=== PATIENT | female | born 1940 | race Caucasian/White ===

== ENCOUNTER 2016-08-01 15:12 | Emergency (ER) | payer OTHER ==
[~2016-08-01] VITALS: Ht 160 cm; Wt 87.4 kg
[~2016-08-01 15:12] MED LIST: ACCL20 PO; ACT15 PO; ALBU1AER9 INH; CALC600T9 PO; CPRDOTS OT; GLC/500 PO; GLC5 PO; LEVO50TA PO; LOSA1TAB38 PO; SIMV40TA2 PO; SYMIN160 INH
[2016-08-01 15:42] VITALS: TEMP 37.3; Ht 160 cm; Wt 87.4 kg
[2016-08-01 16:26] VITALS: BP 145/78; PULSE 87; O2SAT 95
--- NOTE | 2016-08-04 10:52 | EMERGENCY ROOM VISIT NOTE ---
ED Visit Note First contact with patient: 15:55 Chief Complaint: Right leg bleeding. History of Present Illness: Ms. Ordaz is a 75-year-old white female who ambulates into the ED accompanied by multiple family members complaining of right lower leg bleeding. Patient reports last night she was at a local sporting event at a high school and had a spontaneous onset of right anterior lower leg bleeding. She describes the bleeding as a spurting sensation. She reports it has been constant since it started last evening. She has not identified any aggravating or alleviating factors related to the bleeding. She has not taken any medications or any therapies to decrease the bleeding prior to arrival at the hospital. Associated with her bleeding she reports she has mild pain in this area but is unable to describe it. She rates it 1/10. Her pain is slightly reproducible on palpation to the area. She has not taken any medications for this discomfort prior to arrival at the hospital. She denies any associated lower extremity weakness/numbness/tingling, previous significant injuries or surgeries, previous episodes of spontaneous bleeding, anticoagulant therapy, shortness of breath, chest pain. Review of Systems: As noted above in history of present illness. Past Medical History: Chronic otitis media, hypertension, diabetes, hypothyroidism, dyslipidemia. Current Medications: Medications Dose Route/Sig Max Daily Dose Days Date Category Ciprodex Otic (Ciprofloxacin-Dexamethasone) 1 Grace Grace 4 Drops OT BID 02/03/16 Rx Calcium + D (Calcium Carbonate-Vitamin D) 1 Tab Tab 1 Tab PO QAM 01/25/16 Reported Cozaar (Losartan Potassium) 100 Mg Tab 100 Mg PO QAM 01/25/16 Reported Glucophage (Metformin Hcl) 500 Mg Tab 500 Mg PO BID 01/25/16 Reported Synthroid (Levothyroxine Sodium) 50 Mcg Tab 50 Mcg PO QAM 01/25/16 Reported Proair Hfa (Albuterol) Aers 2 Puffs INH QAM 02/09/10 Reported Symbicort 160/4.5 Inhaler (Budesonide/Formoterol Fumarate) Aero 2 Puffs INH QAM 02/09/10 Reported Zocor (Simvastatin) 40 Mg Tab 40 Mg PO QAM 02/20/09 Reported Actos * (Pioglitazone HCl) 45 Mg Tab 45 Mg PO QAM 02/20/09 Reported Accolate * (Zafirlukast) 20 Mg Tab 20 Mg PO BID 02/20/09 Reported Glucotrol * (Glipizide) 5 Mg Tab 10 Mg PO BID 02/20/09 Reported Allergies to Medications: Aspirin. Social History: Patient is not employed; she feels safe in her home environment ; patient denies tobacco use. Physical Examination: Vital Signs: Date Time Temp Pulse Resp B/P Pulse Ox O2 Delivery O2 Flow Rate FiO2 08/01/16 16:26 87 18 145/78 95 Room Air 08/01/16 15:42 37.3 89 20 93 Room Air GENERAL: 75-year-old female in no acute distress, nontoxic-appearing, afebrile and hemodynamically stable. NEUROLOGICAL: Awake, alert and oriented to person, place and time. Answering questions appropriately and following commands. Normal gait. Good hand eye coordination. No focal motor sensory deficits. SKIN: Warm, dry and pink. Right Lower Leg: A bandage was removed and there was an obvious small 1-2 mm puncture like wound appearing over a varicosity. There was no active bleeding. There is no local erythema or edema. RIGHT LOWER EXTREMITY: Soft tissue injury as noted above. Previously noted there was no active bleeding. She does have mild dependent edema. Distal sensation to light touch is intact. Capillary refill was brisk. I minimally manipulate the wound but was not able to restart bleeding. ED Course: Patient is assessed as noted above. Patient was educated about tonight's findings and instructed on her treatment plan; she verbalizes understanding and agreement with this plan. Clinical Impression: Bleeding from a varicosity. Right lower leg bleeding, resolved. Disposition: Patient discharged home in stable condition accompanied by multiple family members; prior to departure she was reassessed and subjectively reported she was pain-free. Plan: Comfort measures, wound care, signs of infection and instruction for bleeding given to the patient. Patient was encouraged that if bleeding continued for longer than 15 minutes after attempting to control bleeding she should return to the ED for any signs of infection she should return
[2016-10-12] MEDS ORDERED: OFLO0.3D4 OT (08:56)
== END 2016-08-01 16:28 | disposition home or self-care (01) ==
LOC: C.EDB 15:17 → C.EDD 16:28
DX: I83.891 Varicose veins of right lower extremity with other complications (principal); I10 Essential (primary) hypertension; E11.9 Type 2 diabetes mellitus without complications; E03.9 Hypothyroidism, unspecified; E78.5 Hyperlipidemia, unspecified; Z79.84 Long term (current) use of oral hypoglycemic drugs; Z79.899 Other long term (current) drug therapy

== ENCOUNTER → 2016-08-29 | Outpatient (CLI) | payer OTHER ==
[~2016-08-29] MED LIST changes: +OFLO0.3D4 OT
--- NOTE | 2016-08-29 15:31 | DIAGNOSTIC IMAGING REPORT ---
LEFT FOREARM 2 VIEWS ROUTINE, LEFT HUMERUS MIN 2 VIEWS ROUTINE CLINICAL HISTORY: Fall with left arm pain. COMPARISON STUDY: None. FINDINGS: There is an old, healed distal left radius fracture. The bones are osteopenic. Soft tissues are unremarkable. No elbow effusion. No acute fracture or dislocation within the left humerus, left radius, or left ulna. IMPRESSION: No acute fracture or dislocation within the left humerus or left forearm. Electronically signed by: Oli Renae M.D. 08/29/2016 3:30 PM Dictated Date/Time: 08/29/2016 3:26 PM
== END | disposition home or self-care (01) ==
LOC: C.RAD1850 15:09
PROVIDERS: ATTEND Allergy & Immunology Allergy
DX: M79.602 Pain in left arm (principal); W19.XXXA Unspecified fall, initial encounter

== ENCOUNTER → 2016-10-12 | Day surgery (SDC) | payer OTHER ==
[2016-10-11 14:59] VITALS: Ht 158.8 cm; Wt 85.5 kg
--- NOTE | 2016-10-11 22:58 | HISTORY & PHYSICAL EXAMINATION ---
DATE OF ADMISSION: 10/12/2016 DIAGNOSIS: Chronic otitis media. HISTORY OF PRESENT ILLNESS: This 75-year-old lady has had a long history of chronic otitis media with multiple sets of tubes. PAST MEDICAL HISTORY: Medical problems: Hypertension and asthma. PREVIOUS SURGERIES: Multiple tubes. ALLERGIES: ASPIRIN. FAMILY HISTORY: Negative. SOCIAL HISTORY: Negative. REVIEW OF SYSTEMS: Otherwise negative. PHYSICAL EXAMINATION: GENERAL: female, 5 feet 4 inches, 179 pounds. HEAD: Normocephalic. EYES: Normal. EARS: Tympanic membranes are dull, retracted and collapsed. THROAT: Oropharynx is normal. NECK: Supple. HEART: RRR. LUNGS: Clear. ABDOMEN: Soft. GENITOURINARY: Deferred. IMPRESSION: Chronic otitis media. PLAN: BMT.
[~2016-10-12] VITALS: Ht 158.8 cm; Wt 85.5 kg
[~2016-10-12] MED LIST changes: +ACT/45 PO; +ALBUT/IPRATROP 3MG/0.5MG NEB 3 ML VIAL INH ONE; +ALBUT/IPRATROP 3MG/0.5MG NEB 3 ML VIAL ONE; +ATROPINE SULFATE 0.1 MG/ML 5ML SYR IV PRN; -CPRDOTS OT; +DEXAMETHASONE SOD INJ 4 MG/ML VIAL ONE; +EpHEDrine SULFATE INJ 50 MG/ML AMP IV PRN; +FENTANYL CITRATE INJ 50 MCG/1 ML 2 ML VIAL IV PRN; +FENTANYL CITRATE INJ 50 MCG/1 ML 2 ML VIAL ONE; +GLIP10TA9 PO; +LACTATED RINGER'S 1000ML 1,000 ML IV SCH; +LIDOCAINE HCL 2% 2 ML VIAL (20MG/ML) ONE; +METF500T5 PO; +OFLOXACIN 0.3% OP SOLN 5 ML BTL ONE; +ONDANSETRON INJ 2 MG/ML 2 ML VIAL IV PRN; +ONDANSETRON INJ 2 MG/ML 2 ML VIAL ONE; +PROAIR HFA INH; +PROPOFOL IV EMULSION 10 MG/ML 20 ML VIAL IV ONE; +TETRACAINE HCL (OPHTH) 60 DROPS/4 ML BTL OP ONE; +ZAFI1TAB10 PO
--- NOTE | 2016-10-12 07:05 | History & Physical Bridge Note ---
H&P Re-Evaluation Bridge Note: I have examined the patient, reviewed the History & Physical and in the interval since the performance of the History & Physical I have noted the following changes of clinical significance: No changes noted
--- NOTE | 2016-10-12 08:57 | Discharge Instructions-SurgCtr ---
Discharge Instructions Date of Service Oct 12, 2016. Visit Reason for Visit: Chronic Otits Media Discharge Discharge Diagnosis / Problem: same Discharge Goals Goal(s): Improve function Activity Recommendations Activity Limitations: resume your previous activity Anesthesia . Post Anesthesia Instructions: If you have had General Anesthesia or IV Sedation: * Do not drive today. * Resume driving when surgeon permits. * Do not make important decisions or sign legal documents today. * Call surgeon for: 1. Temperature elevations greater than 101 degrees F. 2. Uncontrollable pain. 3. Excessive bleeding. 4. Persistent nausea and vomiting. 5. Medication intolerance (nausea, vomiting or rash). * For nausea and vomiting use only clear liquids such as: tea, soda, bouillon until nausea subsides, then gradually increase diet as tolerated. * If you have any concerns or questions, call your surgeon's office. If physician is unavailable and it is an emergency, call 911 or go to the nearest emergency room. . Instructions / Follow-Up Instructions / Follow-Up ACTIVITY RECOMMENDATIONS: * Take it easy today. * Return to regular activity tomorrow. OVER THE COUNTER MEDICATIONS: * You may use Tylenol for pain * Avoid aspirin or aspirin containing products, e.g. as they may increase bleeding. DIET: Resume previous diet RETURN TO SCHOOL/WORK: May return to normal activities tomorrow. SPECIAL CARE INSTRUCTIONS: * Drainage is not unusual during the first few days after placement of tubes. The drainage may be bloody. If it is foul smelling or very thick, please notify the doctor. Call or cell phone . * Keep water out of the ears when shampooing or bathing. Use cotton balls covered with Vaseline or "Macks" ear plugs. * Call physician if increased pain, fever over 101 degrees F. or any problems. FOLLOW UP VISIT: Follow-up Visit with Dr. Leonard in 2 weeks. Please call to schedule. Diet Recommendations Home Diet: no limitations Procedures Procedures Performed: Bilateral Myringotomy With Tubes Pending Studies Studies pending at discharge: no Medical Emergencies . Who to Call and When: Medical Emergencies: If at any time you feel your situation is an emergency, please call 911 immediately. . Non-Emergent Contact Non-Emergency issues call your: Primary Care Provider . . "Provider Documentation" section prepared by Vandana CHAVEZ Drug Monitoring Program Search Results: no issues identified
[2016-10-12 09:52] VITALS: BP 150/83; O2SAT 96
--- NOTE | 2016-10-12 10:05 | Anesthesia Progress Nt - [facility] ---
Anesthesia Post Op Note Date & Time Oct 12, 2016 at 09:55 Vital Signs Pain Intensity: 0 Vital Signs Past 12 Hours Date Time Temp Pulse Resp B/P Pulse Ox O2 Delivery O2 Flow Rate FiO2 10/12/16 09:52 84 20 150/83 96 Room Air 10/12/16 09:24 36.4 75 20 143/71 97 Room Air 10/12/16 09:18 81 23 97 10/12/16 09:18 79 23 10/12/16 09:18 37.0 83 18 152/81 98 Room Air 10/12/16 09:15 155/68 10/12/16 09:14 155/62 10/12/16 09:13 81 15 10/12/16 09:13 82 15 98 10/12/16 09:11 155/62 10/12/16 09:08 79 18 99 10/12/16 09:08 79 18 10/12/16 09:06 173/67 10/12/16 09:03 79 10 100 10/12/16 09:03 79 10 10/12/16 09:00 146/94 10/12/16 08:58 73 13 10/12/16 08:58 73 13 100 10/12/16 08:55 147/62 10/12/16 08:53 71 19 10/12/16 08:53 72 19 100 10/12/16 08:50 156/67 10/12/16 08:49 151/70 10/12/16 08:48 36.6 81 20 151/70 99 Mask 6 10/12/16 07:08 36.7 80 20 155/71 96 Room Air Notes Mental Status: alert / awake / arousable, participated in evaluation Pt Amnestic to Procedure: Yes Nausea / Vomiting: adequately controlled Pain: adequately controlled Airway Patency, RR, SpO2: stable & adequate BP & HR: stable & adequate Hydration State: stable & adequate Anesthetic Complications: no major complications apparent The patient is a 75 y/o female with a h/o Asthma, possible URI, DM and hypothyroidism s/p B myringotomy tube placement with Dr. Leonard. Preoperatively, the patient had a slight expiratory wheeze on exam. Her oxygen saturation was 97% RA. She stated that she has been having some nasal congestion recently which is probably why she is wheezing. She did take her inhalers this morning. She took 2 puffs of Albuterol preoperatively as well. Intraoperatively, an LMA was placed. She did have some wheezing after LMA placement for which she was given Albuterol and Decadron 4mg IV which improved her wheezing. On arrival to the recovery room, she was noted to have inspiratory and expiratory wheezing. Her oxygen saturations were 100% on FM. She was given a Duoneb which significantly improved her wheezing with only a very slight occasional expiratory wheeze remaining. On discharge her oxygen saturation was 97% on RA and she was feeling well with no complaints. She was instructed to go the ED with any chest pain, shortness of breath, chest tightness, significant wheezing, lightheaded or dizziness or with any other complaints. She understands and agrees.
--- NOTE | 2016-10-12 11:12 | OPERATIVE REPORT ---
DATE OF OPERATION: 10/12/2016 PREOPERATIVE DIAGNOSIS: Chronic otitis media. POSTOPERATIVE DIAGNOSIS: Same. PROCEDURE: BMT. SURGEON: Dr. Leonard. ANESTHESIA: General with LMA. COMPLICATIONS: None. BLOOD LOSS: 5 mL HISTORY: This 75-year-old lady has had a long history of recurrent chronic otitis media. She now again has collapsed tympanic membranes with fluid and mixed hearing loss. DESCRIPTION OF PROCEDURE: The patient was brought to the Operating Room and placed supine position. General anesthesia was induced. Right ear was visualized and irrigated with peroxide, cleaned of cerumen. A myringotomy incision was made anterior inferiorly. Thick fluid was evacuated from middle ear space and a T-tube was inserted. Cortisporin drops were placed. Left tympanostomy performed similar manner. The patient tolerated the procedure well and was taken to the recovery area in satisfactory condition. I attest to the content of the Intraoperative Record and any orders documented therein. Any exceptio ns are noted below.
== END | disposition home or self-care (01) ==
LOC: X.SURG 06:35
PROVIDERS: ATTEND Otolaryngology
DX: H66.93 Otitis media, unspecified, bilateral (principal); I10 Essential (primary) hypertension; J45.909 Unspecified asthma, uncomplicated; Z79.899 Other long term (current) drug therapy

== ENCOUNTER → 2016-10-20 | Outpatient (CLI) | payer OTHER ==
[~2016-10-20] MED LIST changes: -ALBUT/IPRATROP 3MG/0.5MG NEB 3 ML VIAL INH ONE; -ALBUT/IPRATROP 3MG/0.5MG NEB 3 ML VIAL ONE; -ATROPINE SULFATE 0.1 MG/ML 5ML SYR IV PRN; -DEXAMETHASONE SOD INJ 4 MG/ML VIAL ONE; -EpHEDrine SULFATE INJ 50 MG/ML AMP IV PRN; -FENTANYL CITRATE INJ 50 MCG/1 ML 2 ML VIAL IV PRN; -FENTANYL CITRATE INJ 50 MCG/1 ML 2 ML VIAL ONE; -LACTATED RINGER'S 1000ML 1,000 ML IV SCH; -LIDOCAINE HCL 2% 2 ML VIAL (20MG/ML) ONE; -OFLOXACIN 0.3% OP SOLN 5 ML BTL ONE; -ONDANSETRON INJ 2 MG/ML 2 ML VIAL IV PRN; -ONDANSETRON INJ 2 MG/ML 2 ML VIAL ONE; -PROPOFOL IV EMULSION 10 MG/ML 20 ML VIAL IV ONE; -TETRACAINE HCL (OPHTH) 60 DROPS/4 ML BTL OP ONE
--- NOTE | 2016-10-20 11:31 | DIAGNOSTIC IMAGING REPORT ---
RIGHT HAND 3 VIEWS HISTORY: Right hand pain. COMPARISON: None. FINDINGS: The bones are osteopenic. No acute fracture or dislocation. Severe osteoarthritis at the DIP joint of the right index finger. There is also moderate osteoarthritis within the remaining DIP joints, PIP and, first MCP joint, and within the wrist. Soft tissues are unremarkable. No radiopaque foreign bodies. IMPRESSION: No fractures. Moderate to severe osteoarthritis. Osteopenia. Electronically signed by: Oli Renae M.D. 10/20/2016 11:30 AM Dictated Date/Time: 10/20/2016 11:28 AM
== END | disposition home or self-care (01) ==
LOC: C.RAD1850 11:16
PROVIDERS: ATTEND Physician Assistant Medical
DX: M79.643 Pain in unspecified hand (principal); M19.041 Primary osteoarthritis, right hand; M85.841 Other specified disorders of bone density and structure, right hand

== ENCOUNTER → 2016-11-07 | Outpatient (CLI) | payer OTHER ==
--- NOTE | 2016-11-07 16:18 | MAMMOGRAPHY REPORT ---
BILATERAL DIGITAL SCREENING MAMMOGRAM WITH CAD: 11/07/2016 CLINICAL HISTORY: Routine screening. Patient has no complaints. TECHNIQUE: Bilateral CC and MLO views were obtained. Current study was also evaluated with a Compu ter Aided Detection (CAD) system. COMPARISON: Comparison is made to exams dated: 11/02/2015 mammogram, 10/27/2014 mammogram, 09/09/2013 m ammogram, 08/27/2012 mammogram, 08/24/2011 mammogram, and 08/22/2010 mammogram - [facility]. BREAST COMPOSITION: There are scattered areas of fibroglandular density in both breasts. FINDINGS: No suspicious mass, architectural distortion or cluster of microcalcifications is seen. IMPRESSION: ACR BI-RADS CATEGORY 1: NEGATIVE There is no mammographic evidence of malignancy. A 1 year screening mammogram is recommended. The p atient will receive written notification of the results. Approximately 10% of breast cancers are not detected with mammography. A negative mammographic repor t should not delay biopsy if a clinically suggestive mass is present. Brittney Tavarez M.D. ay/:11/07/2016 16:12:59 Boat Mechanic: Priscilla Crow [facility] letter sent: Normal 1/2 BI-RADS Code: ACR BI-RADS Category 1: Negative
== END | disposition home or self-care (01) ==
LOC: C.MAMM 10:58
PROVIDERS: ATTEND Internal Medicine Pulmonary Disease
DX: Z12.31 Encounter for screening mammogram for malignant neoplasm of breast (principal)

== ENCOUNTER → 2016-11-07 | Outpatient (CLI) | payer OTHER ==
[2016-11-07 12:28] LABS: BASO % 0.6 %; BASO ABS # 0.04 K/uL (0-0.2); COMPLETE YES; EOS % 3.8 %; HEMATOCRIT 37.6 % (37-47); IG% 0.4 %; LYMPH % 22.9 %; LYMPH ABS # 1.57 K/uL (1.2-3.4); MEAN CELL VOLUME 91.5 fL (80-100); MEAN CORPUSCULAR HEMOGLOBIN 29.4 pg (25-34); MEAN CORPUSCULAR HGB CONC 32.2 g/dl (32-36); MEAN PLATELET VOLUME 10.1 fL (7.4-10.4); MONO % 8.5 %; NEUT % 63.8 %; PLATELET COUNT 261 K/uL (130-400); RED BLOOD COUNT 4.11 M/uL (4.2-5.4); WHITE BLOOD COUNT 6.86 K/uL (4.8-10.8)
[2016-11-07 12:54] LABS: ESTIMATED AVERAGE GLUCOSE 137 mg/dl; HA1C FLAG Normal (Normal)
[2016-11-07 13:08] LABS: ALT/SGPT 17 U/L (12-78); AST/SGOT 12 U/L (15-37); BLOOD UREA NITROGEN 12 mg/dl (7-18); BUN/CREATININE RATIO 18.2 (10-20); CALCIUM 8.6 mg/dl (8.5-10.1); CARBON DIOXIDE 31 mmol/L (21-32); CHLORIDE 107 mmol/L (98-107); CREATININE 0.66 mg/dl (0.60-1.20); GLUCOSE 60 mg/dl (70-99); POTASSIUM 3.9 mmol/L (3.5-5.1); SODIUM 143 mmol/L (136-145)
[2016-11-07 13:19] LABS: ALB/GLOB RATIO 1.1 (0.9-2); ALKALINE PHOSPHATASE 86 U/L (45-117); CHOLESTEROL 162 mg/dl (0-200); CHOLESTEROL/HDL RATIO 2.5; HDL CHOLESTEROL 66 mg/dl; LDL CHOLESTEROL CALCULATED 79 mg/dl; TRIGLYCERIDES 87 mg/dl (0-150); VERY LOW DENSITY LIPOPROT CALC 17 mg/dl
== END | disposition home or self-care (01) ==
LOC: C.LAB1850 10:38
PROVIDERS: ATTEND Internal Medicine Pulmonary Disease
DX: J45.909 Unspecified asthma, uncomplicated (principal); J30.89 Other allergic rhinitis; E11.9 Type 2 diabetes mellitus without complications; E78.5 Hyperlipidemia, unspecified; E03.9 Hypothyroidism, unspecified; I10 Essential (primary) hypertension; Z12.31 Encounter for screening mammogram for malignant neoplasm of breast

== ENCOUNTER 2017-01-22 18:41 | Emergency (ER) | payer OTHER ==
[~2017-01-22 18:41] MED LIST changes: -ACT/45 PO; -GLIP10TA9 PO; -METF500T5 PO; -PROAIR HFA INH; -ZAFI1TAB10 PO
[2017-01-22 18:45] VITALS: TEMP 36.9
--- NOTE | 2017-01-22 19:21 | EMERGENCY ROOM VISIT NOTE ---
ED Visit Note First contact with patient: 19:09 CHIEF COMPLAINT: Wrist injury HISTORY OF PRESENT ILLNESS: This 76-year-old female patient presents to the emergency department ambulatory complaining of pain in the right wrist after being hit with a volleyball yesterday. The patient was playing volleyball for [employer] when somebody hit the ball and it hit her right wrist. She did not fall to the ground. The patient is able to move their wrist. The patient states the pain is sharp and 8/10. No laceration, no weakness. No numbness or tingling. The patient denies any other injury. The patient is able to move their fingers and elbow without difficulty. The patient has not had any previous injuries to this wrist. The patient has taken nothing for the pain. REVIEW OF SYSTEMS: A 6 system review of systems was performed with positives and pertinent negatives in the HPI. ALLERGIES: Aspirin MEDICATIONS: See nursing notes PMH: Hypertension, hyperlipidemia SOCIAL HISTORY: The patient lives locally. She does not smoke PHYSICAL EXAM: Vital Signs: Reviewed Nurse's notes, vital signs stable. GENERAL : This is a 76-year-old female, in no acute distress, but appears to be in pain , well-developed, well-nourished. NEURO: Alert and oriented to person place and time. Normal sensation to light and sharp touch. MUSCULOSKELETAL: There is no deformity of the right wrist. There is no erythema and a small area of hematoma/ ecchymosis. There is minimal edema. Tenderness over distal wrist. There is no snuff box tenderness. There is tenderness with any movement. Range of motion is decreased secondary to pain. There is no tenderness of the elbow, hand or fingers. Candy Depositing Machine Operator strength 5/5. Radial pulse 2+. SKIN: Normal and intact. The hand is warm and well perfused with capillary refill less than 2 seconds. EMERGENCY DEPARTMENT COURSE: I examined the patient. An X-ray of the right wrist and forearm was reviewed by myself and radiology and showed osteopenia but no obvious fracture. An Robert wrap was placed under my direction and the position was satisfactory. Neurovascular status rechecked and intact. The patient was discharged home in good condition. Blood pressure screening: The patient was found to have an elevated blood pressure and was referred to their primary care doctor for recheck and further treatment I attest that I have personally reviewed the patient's current medication list. The patient was also seen and examined by who agrees with the assessment and treatment plan. Current/Historical Medications Scheduled Budesonide/Formoterol Fumarate (Symbicort 160/4.5 Inhaler ), 2 PUFFS INH BID Calcium Carbonate-Vitamin D (Calcium + D), 1 TAB PO QAM Glipizide (Glucotrol *), 2 TABS PO BID Levothyroxine Sodium (Synthroid), 50 MCG PO QAM Losartan Potassium (Cozaar), 100 MG PO QAM Metformin Hcl (Glucophage), 500 MG PO BID Pioglitazone (Actos *), 45 MG PO QAM Simvastatin (Zocor), 40 MG PO QAM Zafirlukast (Accolate *), 20 MG PO BID Scheduled PRN Albuterol (Proair Hfa), 2 PUFFS INH Q4H PRN for SOB/Wheezing Allergies Coded Allergies: Aspirin (Verified Adverse Reaction, Unknown, N/V, 10/12/16) Vital Signs Date Time Temp Pulse Resp B/P (MAP) Pulse Ox O2 Delivery O2 Flow Rate FiO2 01/22/17 20:40 72 18 173/88 98 01/22/17 18:45 36.9 75 16 165/76 97 Room Air Departure Information Impression Primary Impression: Arm contusion Additional Impression: Hematoma of arm Dispostion Home / Self-Care Condition GOOD Referrals Hill Alvares M.D. (PCP) Harjeet Teran M.D. Patient Instructions ED Hematoma, My [facility] Additional Instructions Ice frequently over the next 24-48 hours Wear the Robert wrap when up and about Follow-up with orthopedics if the symptoms are not improving in 5-7 days Return if worsening symptoms Problem Qualifiers Primary Impression: Arm contusion Encounter type: initial encounter Laterality: right Qualified Codes: S40.021A - Contusion of right upper arm, initial encounter Additional Impression: Hematoma of arm Encounter type: initial encounter Laterality: right Qualified Codes: S40.021A - Contusion of right upper arm, initial encounter
--- NOTE | 2017-01-22 20:20 | DIAGNOSTIC IMAGING REPORT ---
RIGHT WRIST 5 VIEWS; RIGHT FOREARM 2 VIEWS CLINICAL HISTORY: Right arm injury. FINDINGS: 5 views of the right wrist with AP and lateral views of the right forearm are obtained. No prior studies are available for comparison at the time of dictation. The skeletal structures are osteopenic. There is no radiographic evidence of fracture involving the right wrist or forearm. Degenerative narrowing is seen at the radiocarpal articulation. Mild arthritic change is present involving the intercarpal and carpometacarpal joints. The elbow joint is grossly maintained. A large enthesophyte is seen at the triceps insertion. Mild Soft tissue swelling is present around the distal forearm and wrist. IMPRESSION: 1. Soft tissue swelling is seen around the distal 4 and wrist. No fracture is identified involving the wrist or forearm. 2. Osteopenia and arthritic change as above. Electronically signed by: Case Blair M.D. 01/22/2017 8:18 PM Dictated Date/Time: 01/22/2017 8:15 PM
--- NOTE | 2017-01-22 20:33 | EMERGENCY ROOM VISIT NOTE ---
ED Visit Note First contact with patient: 19:09 I have personally evaluated and examined this patient. I agree with assessment and plan of Angeline Latif PA-C.
[2017-01-22 20:40] VITALS: BP 173/88; PULSE 72; O2SAT 98
== END 2017-01-22 20:41 | disposition home or self-care (01) ==
LOC: C.EDB 18:43 → C.EDD 20:41
DX: S40.021A Contusion of right upper arm, initial encounter (principal); W21.06XA Struck by volleyball, initial encounter; Y92.89 Other specified places as the place of occurrence of the external cause; Y93.68 Activity, volleyball (beach) (court); I10 Essential (primary) hypertension; E78.5 Hyperlipidemia, unspecified; Z79.899 Other long term (current) drug therapy

== ENCOUNTER 2017-04-20 14:00 | Emergency (ER) | payer OTHER ==
[~2017-04-20] VITALS: Ht 152.4 cm; Wt 65.5 kg
[~2017-04-20 14:00] MED LIST changes: -OFLO0.3D4 OT; -SIMV40TA2 PO
[2017-04-20 14:14] VITALS: TEMP 36.5; Ht 152.4 cm; Wt 65.5 kg
--- NOTE | 2017-04-20 14:33 | DIAGNOSTIC IMAGING REPORT ---
CHEST ONE VIEW PORTABLE HISTORY: Generalized abdominal pain COMPARISON: Chest 02/20/2009. FINDINGS: Mild chronic interstitial thickening, unchanged. No new focal lung consolidations to suggest pneumonia. The heart remains mildly enlarged. No pleural effusions. No pneumothorax. No evidence for pulmonary edema. IMPRESSION: No significant change compared to the prior study. No acute process. Electronically signed by: Oli Renae M.D. 04/20/2017 2:32 PM Dictated Date/Time: 04/20/2017 2:31 PM
[2017-04-20 14:35] VITALS: O2SAT 98
[2017-04-20 14:55] LABS: BASO % 0.2 %; BASO ABS # 0.02 K/uL (0-0.2); COMPLETE YES; EOS % 0.7 %; HEMATOCRIT 36.2 % (37-47); IG% 0.2 %; LYMPH % 10.6 %; LYMPH ABS # 0.95 K/uL (1.2-3.4); MEAN CORPUSCULAR HEMOGLOBIN 29.1 pg (25-34); MEAN CORPUSCULAR HGB CONC 32.3 g/dl (32-36); MEAN PLATELET VOLUME 9.7 fL (7.4-10.4); MONO % 4.9 %; NEUT % 83.4 %; PLATELET COUNT 191 K/uL (130-400); RED BLOOD COUNT 4.02 M/uL (4.2-5.4); WHITE BLOOD COUNT 8.98 K/uL (4.8-10.8)
[2017-04-20 15:02] LABS: URINE APPEARANCE CLOUDY (CLEAR); URINE BILIRUBIN NEG (NEG); URINE COLOR YELLOW; URINE EPITHELIAL CELL AUTO >30 /lpf (0-5); URINE NITRITE NEG (NEG); URINE SPECIFIC GRAVITY 1.027 (1.000-1.030); UROBILINOGEN NEG (NEG)
[2017-04-20 15:03] LABS: MANUAL MICROSCOPIC REQUIRED? NO; REVIEW REQ? YES
[2017-04-20 15:04] LABS: PARTIAL THROMBOPLASTIN RATIO 1.1; PROTHROMBIN TIME (PATIENT) 10.7 SECONDS (9.0-12.0)
[2017-04-20] MEDS ORDERED: GLIP10TA9 PO (15:14)
[2017-04-20] MEDS ORDERED: METF500T5 PO (15:14)
[2017-04-20] MEDS ORDERED: ACT/45 PO (15:14)
[2017-04-20] MEDS ORDERED: ZAFI1TAB10 PO (15:14)
[2017-04-20] MEDS ORDERED: PROAIR HFA INH (15:14)
[2017-04-20 15:17] LABS: ALT/SGPT 17 U/L (12-78); AST/SGOT 16 U/L (15-37); BLOOD UREA NITROGEN 17 mg/dl (7-18); BUN/CREATININE RATIO 21.5 (10-20); CALCIUM 8.2 mg/dl (8.5-10.1); CARBON DIOXIDE 25 mmol/L (21-32); CHLORIDE 103 mmol/L (98-107); CREATININE 0.79 mg/dl (0.60-1.20); GLUCOSE 152 mg/dl (70-99); POTASSIUM 3.9 mmol/L (3.5-5.1); SODIUM 138 mmol/L (136-145)
[2017-04-20 15:22] LABS: ALKALINE PHOSPHATASE 65 U/L (45-117); CKMB/CK RATIO 1.2 (0-3.0)
--- NOTE | 2017-04-20 16:43 | EMERGENCY ROOM VISIT NOTE ---
History Report prepared by Antonio: Tommie Deshpande Under the Supervision of: Dr. Kp Puentes D.O. First contact with patient: 14:09 Stated Complaint: HYPOGLYCEMIA History of Present Illness The patient is a 76 year old female who presents to the Emergency Room by EMS with complaints of improving hypoglycemia beginning shortly prior to arrival. She has a history of Type II Diabetes. She is on multiple medications for diabetes, but is not on insulin. Per family, the patient appeared very fatigued and slightly confused today prompting them to check her blood sugar. They state that her symptoms improved. The patient denies urinary symptoms, diarrhea, or vomiting. She denies recent illness. She denies recent medication changes. Source of History: patient, family Onset: Shortly prior to arrival Quality: other (hypoglycemia) Timing: other (improving) Associated Symptoms: + fatigue, No vomiting, No diarrhea, No urinary symptoms Review of Systems See HPI for pertinent positives & negatives. A total of 10 systems reviewed and were otherwise negative. Past Medical & Surgical Medical Problems: (1) Arm contusion (2) Diabetes (3) Hematoma of arm Family History No pertinent family history stated. Social History Smoking Status: Never Smoker Housing Status: lives with family Occupation Status: retired Current/Historical Medications Scheduled Budesonide/Formoterol Fumarate (Symbicort 160/4.5 Inhaler ), 2 PUFFS INH BID Calcium Carbonate-Vitamin D (Calcium + D), 1 TAB PO QAM Glipizide (Glucotrol), 10 MG PO BID Levothyroxine Sodium (Synthroid), 50 MCG PO QAM Losartan Potassium (Cozaar), 100 MG PO QAM Metformin Hcl Er (Glucophage Er), 1,000 MG PO DAILY Pioglitazone Hcl (Actos), 45 MG PO DAILY Simvastatin (Zocor), 40 MG PO QAM Zafirlukast (Accolate), 20 MG PO BID Scheduled PRN [Proair Hfa], 2 PUFF INH Q4 PRN for SOB/Wheezing Allergies Coded Allergies: Aspirin (Verified Adverse Reaction, Unknown, N/V, 10/12/16) Physical Exam Vital Signs Date Time Temp Pulse Resp B/P (MAP) Pulse Ox O2 Delivery O2 Flow Rate FiO2 04/20/17 16:00 86 16 162/70 98 Room Air 04/20/17 15:00 84 20 162/82 97 Room Air 04/20/17 14:36 85 04/20/17 14:35 88 16 166/74 99 Room Air 04/20/17 14:35 98 Room Air 04/20/17 14:14 36.5 89 18 169/70 97 Room Air Physical Exam GENERAL: Patient is awake, alert, and in no acute distress. Patient is resting comfortably and showing no signs of anxiety EYES: The conjunctivae are clear. The pupils are round and reactive. EARS, NOSE, MOUTH AND THROAT: The nose is without any evidence of any deformity. Mucous membranes are moist tongue is midline NECK: The neck is nontender and supple. RESPIRATORY: Normal respiratory effort is noted there is no evidence of wheezing rhonchi or rales CARDIOVASCULAR: Regular rate and rhythm noted there no murmurs rubs or gallops normal S1 normal S2 GASTROINTESTINAL: The abdomen is soft. Bowel sounds are present in all quadrants. Abdomen is nontender MUSCULOSKELETAL/EXTREMITIES: There is no evidence of gross deformity full range of motion is noted in the hips and shoulders SKIN: There is no obvious evidence of any rash. There are no petechiae, pallor or cyanosis noted. NEUROLOGIC: Patient is awake alert and oriented x3 strength is symmetric patellar reflexes are 2+ bilaterally Medical Decision & Procedures ER Provider Diagnostic Interpretation: X-ray results as stated below per interpretation by me and the radiologist. CHEST ONE VIEW PORTABLE FINDINGS: Mild chronic interstitial thickening, unchanged. No new focal lung consolidations to suggest pneumonia. The heart remains mildly enlarged. No pleural effusions. No pneumothorax. No evidence for pulmonary edema. IMPRESSION: No significant change compared to the prior study. No acute process. Electronically signed by: Oli Renae M.D. 04/20/2017 2:32 PM Laboratory Results 04/20/17 14:50 Red Blood Count 4.02, Mean Corpuscular Volume 90.0, Mean Corpuscular Hemoglobin 29.1, Mean Corpuscular Hemoglobin Concent 32.3, Mean Platelet Volume 9.7, Neutrophils (%) (Auto) 83.4, Lymphocytes (%) (Auto) 10.6, Monocytes (%) (Auto) 4.9, Eosinophils (%) (Auto) 0.7, Basophils (%) (Auto) 0.2, Neutrophils # (Auto) 7.49, Lymphocytes # (Auto) 0.95, Monocytes # (Auto) 0.44, Eosinophils # (Auto) 0.06, Basophils # (Auto) 0.02 04/20/17 14:38 Test 04/20/17 14:12 04/20/17 14:35 04/20/17 14:38 04/20/17 14:50 Bedside Glucose 123 mg/dl (70-90) Urine Color YELLOW Urine Appearance CLOUDY (CLEAR) Urine pH 5.0 (4.5-7.5) Urine Specific [place] 1.027 (1.000-1.030) Urine Protein NEG (NEG) Urine Glucose (UA) 2+ (NEG) Urine Ketones TRACE (NEG) Urine Occult Blood TRACE (NEG) Urine Nitrite NEG (NEG) Urine Bilirubin NEG (NEG) Urine Urobilinogen NEG (NEG) Urine Leukocyte Esterase SMALL (NEG) Urine WBC (Auto) 5-10 /hpf (0-5) Urine RBC (Auto) 5-10 /hpf (0-4) Urine Hyaline Casts (Auto) 5-10 /lpf (0-5) Urine Epithelial Cells (Auto) >30 /lpf (0-5) Urine Bacteria (Auto) 1+ (NEG) Urine Crystals CALCIUM OXALATE (NONE Prothrombin Time 10.7 SECONDS (9.0-12.0) Prothromb Time International Ratio 1.0 (0.9-1.1) Activated Partial Thromboplast Time 28.7 SECONDS (21.0-31.0) Partial Thromboplastin Ratio 1.1 Anion Gap 10.0 mmol/L (3-11) Est Creatinine Clear Calc Drug Dose 52.8 ml/min Estimated GFR () 85.5 Estimated GFR (Non- 73.7 BUN/Creatinine Ratio 21.5 (10-20) Calcium Level 8.2 mg/dl (8.5-10.1) Total Bilirubin 1.3 mg/dl (0.2-1) Direct Bilirubin 0.3 mg/dl (0-0.2) Aspartate Amino Transf (AST/SGOT) 16 U/L (15-37) Alanine Aminotransferase (ALT/SGPT) 17 U/L (12-78) Alkaline Phosphatase 65 U/L (45-117) Total Creatine Kinase 73 U/L (26-192) Creatine Kinase MB 0.9 ng/ml (0.5-3.6) Creatine Kinase MB Ratio 1.2 (0-3.0) Troponin I < 0.015 ng/ml (0-0.045) Total Protein 7.0 gm/dl (6.4-8.2) Albumin 3.6 gm/dl (3.4-5.0) Lipase 182 U/L (73-393) White Blood Count 8.98 K/uL (4.8-10.8) Red Blood Count 4.02 M/uL (4.2-5.4) Hemoglobin 11.7 g/dL (12.0-16.0) Hematocrit 36.2 % (37-47) Mean Corpuscular Volume 90.0 fL (80-100) Mean Corpuscular Hemoglobin 29.1 pg (25-34) Mean Corpuscular Hemoglobin Concent 32.3 g/dl (32-36) Platelet Count 191 K/uL (130-400) Mean Platelet Volume 9.7 fL (7.4-10.4) Neutrophils (%) (Auto) 83.4 % Lymphocytes (%) (Auto) 10.6 % Monocytes (%) (Auto) 4.9 % Eosinophils (%) (Auto) 0.7 % Basophils (%) (Auto) 0.2 % Neutrophils # (Auto) 7.49 K/uL (1.4-6.5) Lymphocytes # (Auto) 0.95 K/uL (1.2-3.4) Monocytes # (Auto) 0.44 K/uL (0.11-0.59) Eosinophils # (Auto) 0.06 K/uL (0-0.5) Basophils # (Auto) 0.02 K/uL (0-0.2) RDW Standard Deviation 47.1 fL (36.4-46.3) RDW Coefficient of Variation 14.3 % (11.5-14.5) Immature Granulocyte % (Auto) 0.2 % Immature Granulocyte # (Auto) 0.02 K/uL (0.00-0.02) Laboratory results per my review. ECG Indication: other (hypoglycemia) Rate (beats per minute): 90 Rhythm: normal sinus Findings: no acute ischemic change, no ectopy Comparison ECG Date: January 25, 2016 Change: no significant change ED Course 1413: The patient was evaluated in room C2B. A complete history and physical examination were performed. 1700: Upon reevaluation, the patient is resting comfortably. I discussed the results and treatment plan with her. She verbalized agreement of the treatment plan. The patient was discharged home. Medical Decision Differential diagnosis: Etiologies such as metabolic, infection, hypo/hyperglycemia, electrolyte abnormalities, cardiac sources, intracerebral event, toxicologic, neurologic, as well as others were entertained. Nursing notes reviewed. The patient is a 76-year-old female who presented to the emergency department for evaluation of hypoglycemia. The patient takes a sulfonylurea as well as another oral medication for diabetes. She had good resolution of her symptoms oral glucose. The patient was observed in the emergency department. At this time. She was treated with a meal. I discussed the patient's laboratory radiographic studies with her as well as her caregivers. They were encouraged to give the patient plenty to eat for this evening and recheck her blood sugar often. There are also encouraged to continue all medications as prescribed in the morning. There are also encouraged to return to the emergency department immediately if symptoms change worsen or the need arises. Medication Reconcilliation Current Medication List: was personally reviewed by me Blood Pressure Screening Patient's blood pressure: Elevated blood pressure Blood pressure disposition: Referred to PCP Impression Primary Impression: Hypoglycemia Scribe Attestation The scribe's documentation has been prepared under my direction and personally reviewed by me in its entirety. I confirm that the note above accurately reflects all work, treatment, procedures, and medical decision making performed by me. Departure Information Dispostion Home / Self-Care Referrals Hill Alvares M.D. (PCP) Forms HOME CARE DOCUMENTATION FORM, IMPORTANT VISIT INFORMATION, WORK / SCHOOL INSTRUCTIONS Patient Instructions Hypoglycemia, My [facility] [place] G-mode Additional Instructions Continue all medications as prescribed. Be sure to check her blood sugar throughout the day. I would recommend following up with the primary care physician as soon as possible. Return to the emergency department immediately symptoms change worsen or the need arises.
[2017-04-20 17:24] VITALS: BP 152/64; PULSE 86; O2SAT 98
[2017-04-20] MEDS ORDERED: SIMV40TA2 PO (17:35)
== END 2017-04-20 17:26 | disposition home or self-care (01) ==
LOC: EDBD 14:00 → C.EDC 14:01
DX: E11.649 Type 2 diabetes mellitus with hypoglycemia without coma (principal); Z87.828 Personal history of other (healed) physical injury and trauma; Z79.84 Long term (current) use of oral hypoglycemic drugs; Z79.899 Other long term (current) drug therapy; Z79.82 Long term (current) use of aspirin

== ENCOUNTER → 2017-08-15 | Outpatient (CLI) | payer OTHER ==
[~2017-08-15] MED LIST changes: -ACCL20 PO; +ACT/45 PO; -ACT15 PO; -ALBU1AER9 INH; -GLC/500 PO; -GLC5 PO; +GLIP10TA9 PO; +METF500T5 PO; +PROAIR HFA INH; +SIMV40TA2 PO; +ZAFI1TAB10 PO
[2017-08-16 07:01] LABS: HEMOGLOBIN A1C 6.1 % (4.5-5.6)
== END | disposition home or self-care (01) ==
LOC: C.LAB1850 13:34
PROVIDERS: ATTEND Internal Medicine Pulmonary Disease
DX: E11.9 Type 2 diabetes mellitus without complications (principal)

== ENCOUNTER → 2017-11-13 | Outpatient (CLI) | payer OTHER ==
[2017-11-13 12:26] LABS: BASO % 0.5 %; BASO ABS # 0.03 K/uL (0-0.2); EOS % 2.9 %; EOS ABS # 0.17 K/uL (0-0.5); HEMATOCRIT 34.9 % (37-47); HEMOGLOBIN 11.4 g/dL (12.0-16.0); IG# 0.02 K/uL (0.00-0.02); LYMPH % 25.6 %; LYMPH ABS # 1.49 K/uL (1.2-3.4); MEAN CELL VOLUME 91.4 fL (80-100); MEAN CORPUSCULAR HEMOGLOBIN 29.8 pg (25-34); MEAN CORPUSCULAR HGB CONC 32.7 g/dl (32-36); MEAN PLATELET VOLUME 10.1 fL (7.4-10.4); MONO % 6.3 %; MONO ABS # 0.37 K/uL (0.11-0.59); NEUT % 64.4 %; NEUT ABS # 3.75 K/uL (1.4-6.5); PLATELET COUNT 214 K/uL (130-400); RED CELL DISTRIBUTION WIDTH CV 14.3 % (11.5-14.5); RED CELL DISTRIBUTION WIDTH SD 47.5 fL (36.4-46.3); WHITE BLOOD COUNT 5.83 K/uL (4.8-10.8)
[2017-11-13 13:07] LABS: ALBUMIN 3.7 gm/dl (3.4-5.0); ALKALINE PHOSPHATASE 71 U/L (45-117); ALT/SGPT 16 U/L (12-78); AST/SGOT 17 U/L (15-37); BLOOD UREA NITROGEN 18 mg/dl (7-18); CALCIUM 8.5 mg/dl (8.5-10.1); CARBON DIOXIDE 28 mmol/L (21-32); CHOLESTEROL 132 mg/dl (0-200); CREATININE 0.73 mg/dl (0.60-1.20); GLUCOSE 89 mg/dl (70-99); LDL CHOLESTEROL CALCULATED 50 mg/dl; POTASSIUM 3.8 mmol/L (3.5-5.1); SODIUM 140 mmol/L (136-145); TOTAL PROTEIN 7.1 gm/dl (6.4-8.2)
[2017-11-13 13:12] LABS: HEMOGLOBIN A1C 6.1 % (4.5-5.6)
== END | disposition home or self-care (01) ==
LOC: C.LAB1850 10:57
PROVIDERS: ATTEND Internal Medicine Pulmonary Disease
DX: J45.909 Unspecified asthma, uncomplicated (principal); J30.89 Other allergic rhinitis; E11.9 Type 2 diabetes mellitus without complications; E78.5 Hyperlipidemia, unspecified; E03.9 Hypothyroidism, unspecified; I10 Essential (primary) hypertension

== ENCOUNTER 2020-02-25 14:24 | Observation (INO) ==
--- NOTE | 2020-02-25 14:52 | Emergency Department Note ---
Impression & Plan Hypoglycemia ED Provider Note Provider: Cooper Larson MD DATE OF SERVICE: 02/25/2020 CHIEF COMPLAINT: Confusion, hypoglycemia HISTORY OF PRESENT ILLNESS: Patient is a 79-year-old female with a history of diabetes, hyperlipidemia, asthma, depression, hypothyroidism, and intellectual disability presenting here today brought by caregiver after a change in mental status today. Patient evidently around 1:00 was finishing up with her caregiver and began to act somewhat strange and somnolent. Caregiver was initially concerned for stroke within thought about the patient's blood sugars she is diabetic. Gave her some candy and got a glucometer and checked her blood sugar after she had eaten this and it was 29. Given additional apple juice and blood sugar went up to 45. They called her doctor Dr. Alvares who referred her here for further evaluation. Upon arrival blood sugar was 71 for nursing staff. Patient states he is feeling much improved. Denies recent fever or trauma. Denies m issing or taking extra medication. No reports that the patient remains report this happened somewhat frequently and the patient does have a log of blood sugars showing fairly frequent episodes of some hypoglycemia. REVIEW OF SYSTEMS: A total of 10 review of systems was obtained and negative except as stated above in the HPI. PAST MEDICAL HISTORY: As noted above MEDICATIONS: Significantly currently on glipizide 5 mg twice daily, Actos in the morning, and 500 metformin twice daily, reviewed additional medication list. SOCIAL HISTORY: Lives at home with a roommate, single, no local family PHYSICAL EXAM: GENERAL: alert and oriented in no acute distress on stretcher, patient is quite hard of hearing. Head: normocephalic and atraumatic EYES: No injection, discharge or icterus. NECK: Trachea midline. Supple. ENT: Mucous membranes pink and moist. Pharynx without erythema or exudate. adentulous LUNGS: Airway patent. No retractions. Breath sounds clear with good air entry bilaterally. HEART: Regular rate and rhythm. No chest wall tenderness ABDOMEN: Soft and non-tender, without guarding or rebound. SKIN: Acyanotic, warm, dry, without rashes EXTREMITIES: Without swelling, tenderness or deformity NEUROLOGICAL: No focal deficits. No aphasia. No facial droop or slurred speech. Normal strength and tone in the extremities. Sensation to gross touch normal. Patient's hypertension was referred to the hospitalist HOSPITAL COURSE: 1438 Patient was first seen and H&P performed. 1508 received a call from PCPs office indicating the recommendation to stop glipizide. 1600 Patient reassessed and updated. Patient was eating food. 1614 discussed with the hospitalist. Patient's laboratory studies reviewed. Differential includes Infection, dehydration, metabolic abnormality, hypo /hyperglycemia, electrolyte disturbance, anemia, hypoxia, cardiac sources, intracerebral event, toxicologic, neurologic, as well as other pathologies. IMPRESSION/MEDICAL DECISION MAKING: Patient presents for what sounds like hypoglycemic episode. No focal neurological deficit is now the patient is having improvement of her blood sugars improved. Patient is on 3 medications for blood sugar control. Presents with logs indicating she has had multiple episodes of hypoglycemia recently. Basic labs were sent to evaluate for renal dysfunction she was monitored here. I doubt this is cardiac or acute CVA given that the hypoglycemia seems very closely correlated with this. As the patient has not the best historian and does seem like this is happening repeatedly likely the patient should have reduction of her medications to prevent the hypoglycemic episodes. Laboratory studies show stable mild anemia without leukocytosis. No significant change in renal function. Patient had recurrent decrease in blood sugar here given additional food. Given her intellectual disability and recurrent hypoglycemia somewhat refractory here believe that further observation would be in her best interest in the patient is in agreement. They later state the patient has lost about 20 pounds of last several months and this may very well explain why she is having hypoglycemia with the baseline diabetic medication. DIAGNOSIS: Hypoglycemia DISPOSITION: Hospitalist will evaluate Patient was agreeable with this plan. Past Med/Surg History Medical History (Updated 02/25/20 @ 16:52 by Cooper Larson M.D.) Chronic otitis media of left ear Chronic otitis media of right ear with effusion 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, type 2 Hemorrhage following tonsillectomy and adenoidectomy CHILD Hyperlipidemia Hypertension Hypothyroidism Mild intellectual disabilities Murmur Surgical History History of ankle surgery LEFT History of hysterectomy History of myringoplasty X2 Family History Sister Diabetes Social History Smoking Status: Never smoker Second Hand Exposure: No; Hx Alcohol Use: No Hx Substance Use: No Preferred Language: Yemeni Communication Ability: Effective 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 Beliefs That Will Affect Care: None marital status: Single Current Living Situation: Other Current Living Situation Comment: lives with roomate current occupational status: disabled Other Information That Helps Us Care for You: No Feels Safe at Home: Yes Safety Concerns: Feels Safe At This Time Allergies Allergies Allergy/AdvReac Type Severity Reaction Status Date / Time amoxicillin Allergy Unknown Verified 02/25/20 18:05 doxycycline Allergy Unknown Verified 02/25/20 18:05 aspirin AdvReac Unknown N/V Verified 02/25/20 18:05 Home Meds Home Medications Medication Instructions Recorded Confirmed metformin 1,000 mg PO DAILY 02/25/20 02/25/20 ofloxacin 1 drp OTB DAILY 02/25/20 02/25/20 simvastatin 40 mg PO QAM 02/25/20 02/25/20 Previous Rx's Medication Instructions Recorded albuterol sulfate 90 mcg/actuation 2 puffs INHALATION Q4H PRN #8.5 gm 12/11/19 aerosol inhaler budesonide-formoterol HFA 160 2 puffs INHALATION BID #10.2 gm 12/11/19 mcg-4.5 mcg/actuation aerosol inhaler glipizide 5 mg tablet 5 mg PO BID #180 tab 12/11/19 levothyroxine 50 mcg tablet 50 mcg PO QAM #90 tab 12/11/19 losartan 100 mg tablet 100 mg PO ONCE #90 tab 12/11/19 pioglitazone 45 mg tablet 45 mg PO QAM #90 tab 12/11/19 zafirlukast 20 mg tablet 20 mg PO BID #180 tab 12/11/19 Results & Data (ED) Vital Signs Vital Signs - 24 hr 02/25/20 14:28 Temperature 36.4 C L Temperature Source Oral Pulse Rate 83 Respiratory Rate 20 Blood Pressure 184/71 H Blood Pressure Mean 108 Pulse Oximetry 97 Oxygen Delivery Method Room Air Sepsis Recent Fever Within 48 Hours No Sepsis New/Unexplained Change in Mental Status No Sepsis Action Taken by Nursing No Action Required Laboratory Data Result diagrams: 02/25/20 15:02 02/25/20 15:02 Lab Results 02/25/20 02/25/20 02/25/20 Range/Units 14:31 15:02 15:02 WBC 8.46 (4.8-10.8) K/uL RBC 3.91 L (4.2-5.4) M/uL Hgb 11.4 L (12.0-16.0) g/dL Hct 35.3 L (37-47) % MCV 90.3 (80-100) fL MCH 29.2 (25-34) pg MCHC 32.3 (32-36) g/dL RDW Std Deviation 48.6 H (36.4-46.3) fL RDW Coeff of Seda 14.8 H (11.5-14.5) % Plt Count 216 (130-400) K/uL MPV 9.8 (7.4-10.4) fL Immature Gran % (Auto) 0.4 % Neut % (Auto) 75.5 % Lymph % (Auto) 12.6 % [place] % (Auto) 9.1 % Eos % (Auto) 2.0 % Baso % (Auto) 0.4 % Neut # (Auto) 6.39 (1.4-6.5) K/uL Lymph # (Auto) 1.07 L (1.2-3.4) K/uL [place] # (Auto) 0.77 H (0.11-0.59) K/uL Eos # (Auto) 0.17 (0-0.5) K/uL Baso # (Auto) 0.03 (0-0.2) K/uL Immature Gran # (Auto) 0.03 H (0.00-0.02) K/uL Sodium 138 (136-145) mmol/L Potassium 4.1 (3.5-5.1) mmol/L Chloride 103 (98-107) mmol/L Carbon Dioxide 27 (21-32) mmol/L Anion Gap 8.0 (3-11) BUN 16 (7-18) mg/dl Creatinine 0.83 (0.6-1.2) mg/dl Est Cr Clr Drug Dosing Not Reportable Est GFR ( Amer) 78.8 Est GFR (Non-Af Amer) 68.0 BUN/Creatinine Ratio 19.7 (10-20) Glucose 67 L (70-99) mg/dl POC Glucose 71 (70-99) mg/dl Calcium 8.9 (8.5-10.1) mg/dl Magnesium 2.2 (1.8-2.4) mg/dl Total Bilirubin 1.3 H (0.2-1) mg/dl AST 15 (15-37) U/L ALT 14 (12-78) U/L Alkaline Phosphatase 78 (45-117) U/L Total Protein 6.9 (6.4-8.2) gm/dl Albumin 3.6 (3.4-5.0) gm/dl Globulin 3.3 (2.5-4.0) gm/dl Albumin/Globulin Ratio 1.1 (0.9-2) 02/25/20 Range/Units 15:45 WBC (4.8-10.8) K/uL RBC (4.2-5.4) M/uL Hgb (12.0-16.0) g/dL Hct (37-47) % MCV (80-100) fL MCH (25-34) pg MCHC (32-36) g/dL RDW Std Deviation (36.4-46.3) fL RDW Coeff of Seda (11.5-14.5) % Plt Count (130-400) K/uL MPV (7.4-10.4) fL Immature Gran % (Auto) % Neut % (Auto) % Lymph % (Auto) % [place] % (Auto) % Eos % (Auto) % Baso % (Auto) % Neut # (Auto) (1.4-6.5) K/uL Lymph # (Auto) (1.2-3.4) K/uL [place] # (Auto) (0.11-0.59) K/uL Eos # (Auto) (0-0.5) K/uL Baso # (Auto) (0-0.2) K/uL Immature Gran # (Auto) (0.00-0.02) K/uL Sodium (136-145) mmol/L Potassium (3.5-5.1) mmol/L Chloride (98-107) mmol/L Carbon Dioxide (21-32) mmol/L Anion Gap (3-11) BUN (7-18) mg/dl Creatinine (0.6-1.2) mg/dl Est Cr Clr Drug Dosing Est GFR ( Amer) Est GFR (Non-Af Amer) BUN/Creatinine Ratio (10-20) Glucose (70-99) mg/dl POC Glucose 65 L* (70-99) mg/dl Calcium (8.5-10.1) mg/dl Magnesium (1.8-2.4) mg/dl Total Bilirubin (0.2-1) mg/dl AST (15-37) U/L ALT (12-78) U/L Alkaline Phosphatase (45-117) U/L Total Protein (6.4-8.2) gm/dl Albumin (3.4-5.0) gm/dl Globulin (2.5-4.0) gm/dl Albumin/Globulin Ratio (0.9-2) Administered Medications Insulin Aspart (Insulin Aspart 100 Units/Ml 3 Ml Pen) 0 units SC ACHS ONELIA Stop: 03/26/20 20:59 Last Admin: 02/25/20 21:46 Dose: Not Given Documented by: [id number] Cosigned by: [id number] Simvastatin (Simvastatin 40 Mg Tab) 40 mg PO QPM ONELIA Stop: 03/26/20 20:59 Last Admin: 02/25/20 21:35 Dose: 40 mg Documented by: [id number] Discharge Plan Visit Data Chief Complaint: Hypoglycemia Stated Complaint: SENT BY DR ALVARES - DISORIENTED, LOW SUGAR ED Provider: Cooper Larson Discharge Problem: Hypoglycemia Patient Disposition: Admitted As Inpatient Discharge Instructions Interventions: ED Discharge Assessment Last Done: 02/25/20 19:09
[2020-02-25 15:12] LABS: Basophils # (auto) 0.03 K/uL (0-0.2); Basophils % (auto) 0.4 %; Eosinophils # (auto) 0.17 K/uL (0-0.5); Hematocrit (blood only) 35.3 % (37-47); Hemoglobin 11.4 g/dL (12.0-16.0); Immature Granulocytes # (auto) 0.03 K/uL (0.00-0.02); Immature Granulocytes % (auto) 0.4 %; Lymphocytes # (auto) 1.07 K/uL (1.2-3.4); Lymphocytes % (auto) 12.6 %; Mean Corpuscular Hemoglobin 29.2 pg (25-34); Mean Corpuscular Hgb Conc 32.3 g/dL (32-36); Mean Corpuscular Volume 90.3 fL (80-100); Mean Platelet Volume 9.8 fL (7.4-10.4); Monocytes # (auto) 0.77 K/uL (0.11-0.59); Monocytes % (auto) 9.1 %; Neutrophils # (auto) 6.39 K/uL (1.4-6.5); Neutrophils % (auto) 75.5 %; Platelet Count 216 K/uL (130-400); RDW Coefficient of Variation 14.8 % (11.5-14.5); RDW Standard Deviation 48.6 fL (36.4-46.3); Red Blood Count 3.91 M/uL (4.2-5.4); White Blood Count 8.46 K/uL (4.8-10.8)
[2020-02-25 15:33] LABS: Alanine Aminotransferase 14 U/L (12-78); Albumin Level 3.6 gm/dl (3.4-5.0); Aspartate Aminotransferase 15 U/L (15-37); BUN Creatinine Ratio 19.7 (10-20); Blood Urea Nitrogen 16 mg/dl (7-18); Calcium 8.9 mg/dl (8.5-10.1); Carbon Dioxide 27 mmol/L (21-32); Chloride 103 mmol/L (98-107); Est GFR (African American) 78.8; Glucose 67 mg/dl (70-99); Magnesium 2.2 mg/dl (1.8-2.4); Potassium 4.1 mmol/L (3.5-5.1); Sodium 138 mmol/L (136-145)
[2020-02-25 15:35] LABS: Albumin Globulin Ratio 1.1 (0.9-2); Alkaline Phosphatase 78 U/L (45-117); Bilirubin,Total 1.3 mg/dl (0.2-1); Globulin 3.3 gm/dl (2.5-4.0); Total Protein 6.9 gm/dl (6.4-8.2)
--- NOTE | 2020-02-25 17:12 | History & Physical Report ---
Date of Service February 25, 2020 Assessment & Plan (1) Hypoglycemia: Iatrogenic with glipizide use. Will discontinue glipizide and pioglitazone. BSG ACHS. We will preliminarily continue metformin pending HbA1c with a.m. labs. (2) Diabetes: HbA1c with a.m. labs NovoLog for correction factor only with aim 140-180 (3) Hypertension: Appears uncontrolled on review of previous blood pressure measurements in [facility]. She reports taking her losartan this morning. Continue losartan 100 mg p.o. daily, consider additional antihypertensive if blood pressure remains elevated during her admission. (4) Hypothyroidism: TSH WNL in November Continue levothyroxine 50 mcg p.o. daily (5) Asthma: Not in acute exacerbation Continue Symbicort 2 puffs twice daily (6) Dyslipidemia: Continue simvastatin 40 mg p.o. every morning (7) Urinary frequency: UA pending to assess for UTI Admission and Anticipated Discharge Date Admission Date: 02/25/2020 History of Present Illness Chief Complaint: Altered mental state, hypoglycemia Primary Care Provider: Hill Alvares MD Rosi Ordaz is a 79-year-old female with diabetes mellitus on glipizide who presents to the ER with altered mental state in the setting of hypoglycemia of 35 after candy and a soda. History mostly taken from her caregiver at bedside. She reports having glucose levels recorded in the last few weeks of 17. This is mainly been over the last 2 weeks. Today her caregiver noticed she became acutely altered when trying to write her name. Some concern of a stroke at that time however fortunately also recognized that a low glucose level could cause the same symptoms and gave her some candy and a sugar soda. After this intervention her glucose was still only 35, therefore she was brought to the ER. She last took her glipizide this morning. No fevers, chills, abdominal pain, chest pain, dysuria. She does report having urinary frequency for the last 2 days. Allergies Allergy/AdvReac Type Severity Reaction Status Date / Time amoxicillin Allergy Unknown Verified 02/25/20 18:05 doxycycline Allergy Unknown Verified 02/25/20 18:05 aspirin AdvReac Unknown N/V Verified 02/25/20 18:05 Home Medications Home Medications Medication Instructions Recorded Confirmed Type albuterol sulfate 90 mcg/actuation 2 puffs INHALATION Q4H PRN #8.5 gm 12/11/19 02/25/20 Rx aerosol inhaler budesonide-formoterol HFA 160 2 puffs INHALATION BID #10.2 gm 12/11/19 02/25/20 Rx mcg-4.5 mcg/actuation aerosol inhaler glipizide 5 mg tablet 5 mg PO BID #180 tab 12/11/19 02/25/20 Rx levothyroxine 50 mcg tablet 50 mcg PO QAM #90 tab 12/11/19 02/25/20 Rx losartan 100 mg tablet 100 mg PO ONCE #90 tab 12/11/19 02/25/20 Rx pioglitazone 45 mg tablet 45 mg PO QAM #90 tab 12/11/19 02/25/20 Rx zafirlukast 20 mg tablet 20 mg PO BID #180 tab 12/11/19 02/25/20 Rx metformin 1,000 mg PO DAILY 02/25/20 02/25/20 History ofloxacin 1 drp OTB DAILY 02/25/20 02/25/20 History simvastatin 40 mg PO QAM 02/25/20 02/25/20 History Past Med/Surg History Medical History (Updated 02/26/20 @ 11:28 by Seven Prince MD) Chronic otitis media of left ear Chronic otitis media of right ear with effusion 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, type 2 Hemorrhage following tonsillectomy and adenoidectomy CHILD Hyperlipidemia Hypertension Hypothyroidism Mild intellectual disabilities Murmur Surgical History History of ankle surgery LEFT History of hysterectomy History of myringoplasty X2 Family History Sister Diabetes Social History Smoking Status: Never smoker Second Hand Exposure: No; Hx Alcohol Use: No Hx Substance Use: No Preferred Language: Nepalese Communication Ability: Effective 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: No Beliefs That Will Affect Care: None marital status: Single Current Living Situation: Other Current Living Situation Comment: lives with roomate current occupational status: disabled Other Information That Helps Us Care for You: No Feels Safe at Home: Yes Safety Concerns: Feels Safe At This Time Review of Systems Review of Systems: All systems reviewed & are unremarkable except as noted in HPI & below Physical Exam Constitutional: well developed and well nourished; no acute distress Eyes: PERRL, conjunctivae normal, anicteric sclerae ENMT: external ear and nose normal, oropharynx normal Ears: + hearing impairment Neck: trachea midline, no thyromegaly Respiratory: normal respiratory effort, lungs clear to auscultation Cardiovascular: RRR, no murmur, no edema Gastrointestinal (Abdomen): normal bowel sounds, soft, nontender, no hepatosplenomegaly Musculoskeletal: no cyanosis or clubbing, extremities motor strength 5/5 Skin: no rashes, warm and dry Neurologic: moves all extremities and awake; not confused Psychiatric: A+Ox3, euthymic affect Genitourinary: no CVA tenderness Lymphatic: no cervical or axillary lymphadenopathy Results & Data Results & Data ([facility]) Vital Signs (Past 12 Hours) Vital Signs Temp Pulse Resp BP Pulse Ox 02/25/20 14:28 36.4 C L 83 20 184/71 H 97 Code Status & VTE Plan Code Status Full as discussed with the patient VTE Prophylaxis Plan VTE Prophylaxis will be ordered: No PG Care Time/CCT Total # of Minutes Spent Total Time Spent with Patient: Total time spent is greater than 50% in coordination of care (as documented) at patient's floor/unit and/or counseling patient: Coding Level of Care Code 93372 OBS Care - Level 2 Diagnoses Hypoglycemia E16.2 Diabetes E11.9 Hypertension I10 Hypothyroidism E03.9 Asthma J45.909 Dyslipidemia E78.5 Urinary frequency R35.0
[2020-02-25] MEDS ORDERED: TRAMADOL HCL 50 MG TABLET PO PRN (20:04)
[2020-02-25] MEDS ORDERED: GLUCAGON FOR INJ 1 MG VIAL SQ PRN (20:04)
[2020-02-25] MEDS ORDERED: GLUCOSE 10 TABS/TUBE PO PRN (20:04)
[2020-02-25] MEDS ORDERED: DEXTROSE 50% 50 ML SYRINGE IV PRN (20:04)
[2020-02-25] MEDS ORDERED: GLUCOSE 40% GEL 15 GM TUBE PO PRN (20:04)
[2020-02-25] MEDS ORDERED: CARBOHYDRATES FOR HYPOGLYCEMIA PO PRN (20:04)
[2020-02-25] MEDS ORDERED: ACETAMINOPHEN 325 MG TAB PO PRN (20:58)
[2020-02-25] MEDS ORDERED: SIMVASTATIN 40 MG TAB PO SCH (21:00)
[2020-02-25] MEDS: INSULIN ASPART 100 UNITS/ML 3 ML PEN SC SCH (21:46)
[2020-02-26] MEDS: Zafirlukast 20 MG: ORDER AWAITING ACTION SCH ×2 (00:41→09:20)
[2020-02-26] MEDS ORDERED: LEVOTHYROXINE SODIUM 50 MCG TABLET PO SCH (06:30)
[2020-02-26 07:02] LABS: Basophils # (auto) 0.02 K/uL (0-0.2); Basophils % (auto) 0.4 %; Eosinophils # (auto) 0.23 K/uL (0-0.5); Eosinophils % (auto) 4.7 %; Hematocrit (blood only) 35.8 % (37-47); Hemoglobin 11.6 g/dL (12.0-16.0); Immature Granulocytes # (auto) 0.01 K/uL (0.00-0.02); Immature Granulocytes % (auto) 0.2 %; Lymphocytes # (auto) 1.31 K/uL (1.2-3.4); Lymphocytes % (auto) 26.9 %; Mean Corpuscular Hemoglobin 29.4 pg (25-34); Mean Corpuscular Hgb Conc 32.4 g/dL (32-36); Mean Corpuscular Volume 90.9 fL (80-100); Mean Platelet Volume 9.8 fL (7.4-10.4); Monocytes # (auto) 0.49 K/uL (0.11-0.59); Monocytes % (auto) 10.1 %; Neutrophils # (auto) 2.81 K/uL (1.4-6.5); Neutrophils % (auto) 57.7 %; Platelet Count 218 K/uL (130-400); RDW Coefficient of Variation 14.7 % (11.5-14.5); RDW Standard Deviation 49.2 fL (36.4-46.3); Red Blood Count 3.94 M/uL (4.2-5.4); White Blood Count 4.87 K/uL (4.8-10.8)
[2020-02-26 07:46] LABS: BUN Creatinine Ratio 17.9 (10-20); Calcium 8.7 mg/dl (8.5-10.1); Creatinine Clr Calc Pharmacy 70.8 ml/min; Est GFR (African American) 97.8; Est GFR (Non-African American) 84.4; Potassium 4.3 mmol/L (3.5-5.1)
[2020-02-26 08:00] LABS: Estimated Average Glucose 105 mg/dl; Hemoglobin A1C 5.3 % (4.5-5.6)
[2020-02-26] MEDS ORDERED: FLUTICASONE/VILANTEROL 200/25MCG 14 PUFFS/INHALER INH SCH (09:00)
[2020-02-26] MEDS ORDERED: LOSARTAN POTASSIUM 50 MG TAB PO SCH (09:00)
[2020-02-26] MEDS ORDERED: METFORMIN HCL ER 500 MG TABCR PO SCH (09:00)
[2020-02-26 09:10] LABS: Albumin Level 3.2 gm/dl (3.4-5.0); Bilirubin Direct 0.3 mg/dl (0-0.2); Bilirubin,Total 1.2 mg/dl (0.2-1); Total Protein 6.5 gm/dl (6.4-8.2)
[2020-02-26] MEDS: INSULIN ASPART 100 UNITS/ML 3 ML PEN SC SCH ×2 (09:19→12:28)
[2020-02-26] MEDS ORDERED: hydroCHLOROthiazide 25 MG TAB PO STA (10:47)
--- NOTE | 2020-02-26 10:59 | Discharge Summary ---
Date of Service February 26, 2020 Admission HPI Per Admitting Provider Chief Complaint: Altered mental state, hypoglycemia Primary Care Provider: Hill Alvares MD Rosi Ordaz is a 79-year-old female with diabetes mellitus on glipizide who presents to the ER with altered mental state in the setting of hypoglycemia of 35 after candy and a soda. History mostly taken from her caregiver at bedside. She reports having glucose levels recorded in the last few weeks of 17. This is mainly been over the last 2 weeks. Today her caregiver noticed she became acutely altered when trying to write her name. Some concern of a stroke at that time however fortunately also recognized that a low glucose level could cause the same symptoms and gave her some candy and a sugar soda. After this intervention her glucose was still only 35, therefore she was brought to the ER. She last took her glipizide this morning. No fevers, chills, abdominal pain, chest pain, dysuria. She does report having urinary frequency for the last 2 days. Admission Exam Per Admitting Provider Constitutional: well developed and well nourished; no acute distress Eyes: PERRL, conjunctivae normal, anicteric sclerae ENMT: external ear and nose normal, oropharynx normal Ears: + hearing impairment Neck: trachea midline, no thyromegaly Respiratory: normal respiratory effort, lungs clear to auscultation Cardiovascular: RRR, no murmur, no edema Gastrointestinal (Abdomen): normal bowel sounds, soft, nontender, no hepatosplenomegaly Musculoskeletal: no cyanosis or clubbing, extremities motor strength 5/5 Skin: no rashes, warm and dry Neurologic: moves all extremities and awake; not confused Psychiatric: A+Ox3, euthymic affect Genitourinary: no CVA tenderness Lymphatic: no cervical or axillary lymphadenopathy Principal Diagnosis Hypoglycemia Discharge Exam Constitutional WD/WN, vitals as above no acute distress Eyes + anicteric sclerae and PERRL ENMT Ears: no hearing impairment Neck normal visual inspection Respiratory normal respiratory effort and able to speak in complete sentences; no labored breathing Auscultation: + wheezes (expiratory wheezing posterior lung bui) Cardiovascular RRR, no murmur, no edema Gastrointestinal (Abdomen) normal bowel sounds, soft, nontender, no hepatosplenomegaly Musculoskeletal no cyanosis or clubbing, extremities motor strength 5/5 Skin no rashes, warm and dry Neurologic patellar DTR's 2+ bilat, sensation intact Psychiatric Orientation: alert and oriented x 3 mental disability Lymphatic no cervical or axillary lymphadenopathy Discharge Data Allergies Allergy/AdvReac Type Severity Reaction Status Date / Time amoxicillin Allergy Unknown Verified 02/25/20 18:05 doxycycline Allergy Unknown Verified 02/25/20 18:05 aspirin AdvReac Unknown N/V Verified 02/25/20 18:05 Consultations 02/25/20 16:22 ED Decision to Admit Stat Hospital Course (1) Hypoglycemia: * Patient came in with altered mental status and found to be hypoglycemic with glucose 65 on admission but had been 35 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 * Previously on glipizide, pioglitazone and metformin outpatient * ISS was utilized while inpatient and she did not require any additional insulin * Repeat A1c down to 5.3 * Discussed discontinuing all anti-hyperglycemic agents and follow diabetic/carb consistent diet and to follow up with PCP in the next week with repeat labs in 3 months to assess A1c (2) Diabetes: * A1c 5.3 -- discontinued glipizide, pioglitazone and metformin as above * Follow up with PCP (3) Hypertension: * BP elevated on admission and appeared to be elevated on review of previous readings through August * Losartan 100mg daily continued * BP 174/77 AM 02/25 * --> initiated HCTZ 12.5mg daily to be continued at discharge (4) Hypothyroidism: * TSH WNL in November * Continued levothyroxine 50 mcg p.o. daily (5) Asthma: * Not in acute exacerbation although did hear wheezing posterior lung bui on exam --> ordered home albuterol HFA. 96% on RA and denied shortness of breath * Continued Symbicort 2 puffs twice daily (6) Urinary frequency: * Reported to admitting provider. No voiced urinary symptoms to myself, although will have patient collect UA prior to d/c to ensure no UTI prior to discharge. Spoke with nursing to collect (7) Dyslipidemia: * Continued simvastatin 40 mg p.o. every morning Patient discharged home with anti-hyperglycemic agents discontinued and initiated on HCTZ for BP control. To follow up with PCP for further titration of HTN agents. Total Time Total Time Spent Total Time Spent (In Minutes): 60 Discharge Plan Discharge Items Patient Disposition: Home - Self-Care Reason For Visit: IATROGENIC HYPOGLYCEMIA Discharge Diagnosis: Iatrogenic Hypoglycemia Goals: You have been hospitalized for an acute medical problem. During your stay at [facility], we have made an effort to correct the problem that brought you to the hospital while keeping you as comfortable as possible. Medications were used to bring your condition under control and your discharge instructions will include directions for any medications you should take after leaving the hospital. Please make sure you see your Primary Care Provider as part of your follow up plan. Activity: Resume your previous activity Non-emergency contact: Primary Care Provider Call non-emergency contact if: you have any medication questions and your symptoms worsen Follow-up/Referrals: Hill Alvares MD [Primary Care Provider] - 03/03/20 2:15 pm (You have an appt with your PCP on Mar 03 at 215p. Please arrive 15 minutes prior to your appt time. If this appt does not fit your schedule please call to reschedule. Remember to bring your face mask. Bess Gageludwig [phone] ) Diet: Carb Consistent or DM2 and Heart Healthy Addtl Attending Provider Instructions: You have been hospitalized and found to have a low blood glucose reading. Your A1c (measurement of average blood glucose) was repeated given your diabetes and medications you have been on to control this. Your A1c was found to be 5.3, which is technically lower than the beginning end of "pre-diabetes". The following medications have been DISCONTINUED: * Glipizide * Pioglitazone * Metformin You should follow up with your primary care provider for repeat labs in 3 months to ensure no agents are needed and that it continues to stay low while you are adhering to a carb consistent/diabetic diet. Your blood pressures have also been quite elevated despite your losartan for blood pressure. You have been started on a low dose hydrochlorothiazide 12.5mg, to be taken by mouth ONCE daily. You should follow up with your primary care provider for further increase in this medication if needed. Please follow up with your PCP in 1 week to monitor your progress. Please return to the emergency department with any worsening confusion, chest pain, shortness of breath, or for any other symptoms that are concerning for you. It has been a pleasure being a part of the medical team providing for you while you have been in the hospital. Take care! Pending Studies at Discharge: No Stand-Alone Forms: [facility] Medications and DC Order Prescriptions: New hydrochlorothiazide 12.5 mg tablet 12.5 mg PO DAILY Qty: 30 RF: 0 Continued albuterol sulfate 90 mcg/actuation HFA aerosol inhaler 2 puffs inhalation Q4H PRN (Reason: shortness of breath or wheezing) Qty: 8.5 RF: 11 budesonide-formoterol 160-4.5 mcg/actuation HFA aerosol inhaler 2 puffs inhalation BID Qty: 10.2 RF: 11 levothyroxine 50 mcg tablet 50 mcg PO QAM Qty: 90 RF: 3 zafirlukast 20 mg tablet 20 mg PO BID Qty: 180 RF: 3 simvastatin 40 mg tablet 40 mg PO QAM RF: 0 ofloxacin 0.3 % drops 1 drp OTB DAILY RF: 0 Changed losartan 100 mg tablet 100 mg PO QAM Qty: 90 RF: 3 Discontinued glipizide 5 mg tablet 5 mg PO BID Qty: 180 RF: 3 pioglitazone 45 mg tablet 45 mg PO QAM Qty: 90 RF: 3 metformin 500 mg tablet extended release 24 hr 1,000 mg PO DAILY RF: 0 Discharge Orders: Discharge Order (Routine); Ordered 02/26/20 Ordered By: Iris Tarango Admission Data Admit Date/Time: 02/25/20 17:11 Attending Provider: Celestino Schaefer Admit Provider: Seven Prince Primary Care Provider: Hill Alvares Other Providers: Seven Prince Other Interventions: Discharge Summary Assessment (RN) Last Done: 02/26/20 14:47 Supervising Physician Co-Signing Physician Notes Patient seen and examined on the day of discharge. I agree with the discharge summary by Iris CHAVEZ. I have reviewed the chart including labs, imaging and plans for discharge. patient doing better, no hypoglycemia with holding oral agents - Iatrogenic hypoglycemia HbA1c is 5.2, clearly her diabetes is too tightly controlled stop all oral medications follow diabetic diet, will try just dietary control follow up with PCP - HTN: started on HCTZ, follow up with PCP Coding Level of Care Code 89250 OBS Care - Discharge Diagnoses Hypoglycemia E16.2 Diabetes E11.9 Hypertension I10 Hypothyroidism E03.9 Asthma J45.909 Urinary frequency R35.0 Dyslipidemia E78.5
[2020-02-26] MEDS ORDERED: ALBUTEROL HFA 8 GM INHALER INH ONE (11:14)
[2020-02-26] MEDS ORDERED: MONTELUKAST SODIUM 10 MG TABLET PO SCH (21:00)
== END 2020-02-26 17:22 | disposition home or self-care (01) ==
LOC: ED 14:24 → 2W 14:24 → SUATTDRO 17:11 → 2W 19:09

== ENCOUNTER 2024-07-25 12:23 | Inpatient (IN) ==
[2024-07-25] MEDS ORDERED: SODIUM CHLORIDE 0.9% 50 ML IV PRN (13:11)
--- NOTE | 2024-07-25 13:20 | Emergency Department Note ---
Impression & Plan Acute upper gastrointestinal bleeding, Acute blood loss anemia, Atrial fibrillation with rapid ventricular response ED Provider Note Name: ELSA LINK Age: 83 Sex: Female Arrives Via: Walk-In Informant: Patient, caregiver ED Provider: Redd Hays MD Chief Complaint: Illness Impression: As per impressions above Medical Decision Makin-year-old female arrives for evaluation of worsening weakness and fatigue over the last 2 weeks. Seen at endocrinology this morning noted to have severe anemia and sent to the ER for evaluation. On arrival patient is quite pale and unwell appearing. EKG does show some lateral ST depressions. Blood pressure is stable though she is pretty tachycardic. Patient was ordered an urgent unit of PRBCs after was noted that she has heme positive brown stool. Protonix also ordered. Laboratory workup reveals hyperglycemia but otherwise is reassuring beyond the severe anemia. Patient clearly will need more than just a single unit of blood given she is actively bleeding with 6 or low hemoglobin to begin with. 2 units were ordered. Of note following the end of the first unit she did develop shortness of breath though was not hypoxic. Chest x-ray reveals developing pulmonary edema. She was given a dose of IV Lasix presuming that this is some fluid overload. I do not feel that this is an acute trolley. I did keep hospitalist aware of the fact that second unit was somewhat paused while awaiting chest x-ray and Lasix. Of note patient on arrival in A-fib RVR. This did start improving with initial bolus of prbc. Triage/Nursing Notes reviewed by Me Differential:Infection, dehydration, metabolic abnormality, hypo/hyperglycemia, electrolyte disturbance, anemia, hypoxia, cardiac sources, intracerebral event, toxicologic, neurologic, as well as other pathologies. Vital Signs: reviewed and remarkable for tachycardia Interventions: 1 Unit PRBC, 80mg IV Protonix Labs:ED labs Reviewed by me and remarkable for anemia, hyperglycemia Imaging:X ray results are stated below per my interpretation: Chest: 1 view: Mild developing fluid overload/pulmonary edema EKG:As per my interpretation. Indication weakness. A-flutter RVR 125 bpm. QTc 435. There are some lateral ST depressions. Compared to EKG of August 15, 2019 she is now in A-fib RVR. Cardiac/Tele Monitoring: Cardiac Monitoring: An Order was placed for continuous cardiac monitoring. The monitor shows a rate of 120 with a afib RVR rhythm. Consults:Discussed with Dr Reeves of the hospitalist service Plan: Disposition:Hospitalization. Condition: Fair History of Present Illness: 83-year-old female arrives for evaluation of illness. Patient has been having increasing weakness fatigue the last 2 weeks. Worse with exertion. Associated with a bit of a cough and generalized exhaustion. 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 She had been seen by PCP with the plan for an increased workup and then seen by endocrinology this morning. Laboratories today revealed she is significantly anemic. She was advised to come to the ER for further evaluation. Patient states that she has no abdominal pain, nausea, vomiting, chest pain, shortness of breath, back pain or other concerning signs or symptoms currently. She denies any black or bloody stools recently. She has not had any bruising or swelling of the lower extremities. Does not take any blood thinners. Past Medical History:See Below Home Medications:See Below Allergies:amox, doxy, aspirin Vitals:Blood Pressure: 109/70, Pulse 131, RR 20, T 36.8C, O2 98% on RA Physical Exam: GENERAL: Patient is unwell/pale appearing and in minimal distress. RESPIRATORY: Mild dyspnea. Clear to auscultation and equal bilaterally. CARDIOVASCULAR: irregular, systolic murmur GASTROINTESTINAL: Abdomen soft, non-tender, no peritonitis. RECTAL: Brown, HEME POSITIVE stool EXTREMITIES: Normal motion all extremities, no cyanosis, no edema. NEUROLOGIC: Alert and oriented. No focal neurologic deficits appreciated SKIN: No rash, no jaundice, no diaphoresis. PSYCH: Appropriate GCS: 15 ED Course: Times/Reassessments: Many repeat evaluations. Heart rate did start improving and patient doing well with initial 1 unit PRBC until end of infusion when she had a bit increased shortness of breath. Chest x-ray shows some fluid overload. Lasix ordered patient tolerating well. Critical Care: I have personally spent 45 minutes of critical care time in the direct management of this patient. Acute blood loss anemia requiring resuscitation with transfusion emergently. This was a life/limb threatening event. This 45 minutes is in excess of all separately billable procedures. Redd Hays MD Past Med/Surg History Problem List (Updated 07/26/24 @ 16:52 by Redd Hays MD) Atrial fibrillation with rapid ventricular response (Acute) Acute blood loss anemia (Acute) Acute upper gastrointestinal bleeding (Acute) Asthma Bronchospasm Paroxysmal A-fib Severe aortic stenosis Afib GI bleed Moderate persistent asthma, uncomplicated Anemia 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, type 2 (Chronic) Mixed hearing loss Mental disability (Chronic) Hypertension (Chronic) Dyslipidemia (Chronic) Hypothyroidism (Chronic) Allergic rhinitis due to dust (Chronic) Medical History Chronic otitis media of left ear Chronic otitis media of right ear with effusion Right calf pain Noncompliance w/medication treatment due to intermit use of medication Excessive cerumen in both ear canals Tympanic membrane perforation Hypoglycemia Mild intellectual disabilities Hypothyroidism Hypertension Hyperlipidemia Hemorrhage following tonsillectomy and adenoidectomy CHILD Murmur Surgical History History of placement of ear tubes History of tooth extraction all teeth History of surgery on wrist closed reduction with external pinning History of cataract surgery RIGHT History of ankle surgery LEFT History of myringoplasty X2 History of hysterectomy Family History Sister Diabetes Hypertension Asthma Brother Stroke Other No family history of adverse response to anesthesia No family history of bleeding disorder Sudden Social History Smoking Status: Never smoker Second Hand Exposure: No; Do You Dip or Chew Tobacco: No; Hx Alcohol Use: No Hx Substance Use: No Preferred Language: Slovak Communication Ability: Effective Electrical System Specialist Required: No Beliefs That Will Affect Care: None marital status: Single Current Living Situation: Alone Current Living Situation Comment: Lives at home alone with 2 cats; caregiver comes by twice a week current occupational status: disabled Feels Safe at Home: Yes Assistive Devices: None, Cane, Hearing Aid - Bilateral and Walker Allergies Allergies Allergy/AdvReac Type Severity Reaction Status Date / Time amoxicillin Allergy Unknown Verified 07/25/24 09:16 doxycycline Allergy Unknown Verified 07/25/24 09:16 aspirin AdvReac Unknown N/V Verified 07/25/24 09:16 Home Meds Home Medications Medication Instructions Recorded Confirmed budesonide-formoterol HFA 160 2 puff inhalation BID 07/24/24 07/25/24 mcg-4.5 mcg/actuation aerosol inhaler (Symbicort) glipizide 5 mg tablet 5 mg PO QAM 07/24/24 07/25/24 levothyroxine 50 mcg tablet 50 mcg PO QAM 07/24/24 07/25/24 metformin 500 mg tablet,extended 500 mg PO BID 07/24/24 07/25/24 release 24 hr simvastatin 40 mg tablet 40 mg PO QPM 07/24/24 07/25/24 zafirlukast 20 mg tablet 20 mg PO BID 07/24/24 07/25/24 hydrochlorothiazide 12.5 mg tablet 12.5 mg PO DAILY 07/25/24 07/25/24 Previous Rx's Medication Instructions Recorded OneTouch Delica Lancets 30 gauge #100 ea 11/04/21 (lancets) blood-glucose meter (OneTouch #1 ea 07/04/22 Verio Flex Meter) albuterol sulfate 90 mcg/actuation 2 puff inhalation Q4H PRN 07/09/23 aerosol inhaler shortness of breath or wheezing #8.5 grams fluticasone propionate 50 2 spray intranasal DAILY #16 grams 10/31/23 mcg/actuation nasal spray,suspension (Flonase Allergy Relief) losartan 100 mg tablet 100 mg PO QAM #90 tabs 07/03/24 aspirin 81 mg tablet,delayed 81 mg PO DAILY #90 tabs 07/07/24 release OneTouch Verio test strips (blood #200 ea 07/17/24 sugar diagnostic) Results & Data (ED) Vital Signs Vital Signs - 24 hr 07/25/24 12:33 Temperature 36.8 C Temperature Source Temporal Artery Scan Pulse Rate 131 H Respiratory Rate 20 Blood Pressure 109/70 Blood Pressure Mean 83 Pulse Oximetry 98 Oxygen Delivery Method Room Air Sepsis Recent Fever Within 48 Hours No Sepsis New/Unexplained Change in Mental Status N/A Sepsis Action Taken by Nursing No Action Required Laboratory Data 07/26/24 05:44 07/25/24 12:54 Lab Results 07/25/24 07/25/24 07/25/24 Range/Units 12:49 12:54 13:10 WBC 10.65 (4.8-10.8) K/ul RBC 2.71 L (4.20-5.40) M/uL Hgb 5.9 L* (12.0-16.0) g/dl Hct 20.2 L* (37.0-47.0) % MCV 74.5 L (80.0-100.0) fL MCH 21.8 L (25.0-34.0) pg MCHC 29.2 L (32.0-36.0) g/dL RDW Std Deviation 40.3 (36.4-46.3) fL RDW Coeff of Seda 14.7 H (11.5-14.5) % Plt Count 430 H (130-400) K/uL MPV 10.5 (9.4-12.4) fL Absolute Nucleated RBC 0.02 (0.00-0.12) K/uL Nucleated RBC % (auto) 0.2 % PT 11.5 (9.0-12.0) Seconds INR 1.1 (0.9-1.1) APTT 22 (21-31) Seconds PTT Ratio 0.8 Sodium 135 L (136-145) mmol/L Potassium 4.0 (3.5-5.1) mmol/L Chloride 97 L (98-107) mmol/L Carbon Dioxide 26 (21-32) mmol/L Anion Gap 12 H (3-11) BUN 26 H (6-23) mg/dl Creatinine 1.07 (0.6-1.2) mg/dl Est Cr Clr Drug Dosing 36.6 ml/min eGFR 52.18 BUN/Creatinine Ratio 24.3 H (10-20) Glucose 336 H* (70-99(Fasting)) mg/dl Calcium 8.9 (8.6-10.3) mg/dl Total Bilirubin 1.3 H (0.2-1.0) mg/dl AST 11 L (13-39) U/L ALT 14 (7-52) U/L Alkaline Phosphatase 65 (34-104) U/L Troponin I High Sens 44.3 H (0-14) pg/ml Total Protein 7.0 (6.0-8.3) gm/dl Albumin 3.9 (3.4-5.0) gm/dl Globulin 3.1 (2.5-4.0) gm/dl Albumin/Globulin Ratio 1.3 (0.9-2) POC Stool Occult Blood (Negative) Blood Type O Positive Blood Type Recheck O Positive Antibody Screen NEGATIVE Crossmatch See Detail 07/25/24 Range/Units 13:16 WBC (4.8-10.8) K/ul RBC (4.20-5.40) M/uL Hgb (12.0-16.0) g/dl Hct (37.0-47.0) % MCV (80.0-100.0) fL MCH (25.0-34.0) pg MCHC (32.0-36.0) g/dL RDW Std Deviation (36.4-46.3) fL RDW Coeff of Seda (11.5-14.5) % Plt Count (130-400) K/uL MPV (9.4-12.4) fL Absolute Nucleated RBC (0.00-0.12) K/uL Nucleated RBC % (auto) % PT (9.0-12.0) Seconds INR (0.9-1.1) APTT (21-31) Seconds PTT Ratio Sodium (136-145) mmol/L Potassium (3.5-5.1) mmol/L Chloride (98-107) mmol/L Carbon Dioxide (21-32) mmol/L Anion Gap (3-11) BUN (6-23) mg/dl Creatinine (0.6-1.2) mg/dl Est Cr Clr Drug Dosing ml/min eGFR BUN/Creatinine Ratio (10-20) Glucose (70-99(Fasting)) mg/dl Calcium (8.6-10.3) mg/dl Total Bilirubin (0.2-1.0) mg/dl AST (13-39) U/L ALT (7-52) U/L Alkaline Phosphatase (34-104) U/L Troponin I High Sens (0-14) pg/ml Total Protein (6.0-8.3) gm/dl Albumin (3.4-5.0) gm/dl Globulin (2.5-4.0) gm/dl Albumin/Globulin Ratio (0.9-2) POC Stool Occult Blood Positive A (Negative) Blood Type Blood Type Recheck Antibody Screen Crossmatch Administered Medications Albuterol (Albuterol Hfa 8 Gm Inhaler) 2 puffs INH Q4H PRN PRN Reason: shortness of breath or wheezing Stop: 08/24/24 17:07 Last Admin: 07/26/24 15:54 Dose: 2 puffs Documented By: ABH Fluticasone Propionate (Fluticasone Propionate Na Spr 16 Gm Btl) [address] [facility] Stop: 08/25/24 08:59 Last Admin: 07/26/24 09:46 Dose: 2 sprays Documented By: VIANCA Fluticasone/Vilanterol (Fluticasone/Vilanterol 200/25mcg 14 Puffs/Inhaler) [address] [facility]; Protocol Stop: 08/25/24 08:59 Last Admin: 07/26/24 09:46 Dose: 1 puffs Documented By: VIANCA Insulin Aspart (Insulin Aspart Per Unit Charge) [address] [facility] Stop: 08/24/24 17:07 Last Admin: 07/26/24 11:50 Dose: 7 units Documented By: VIANCA Co-signed By: ESTELITA Admin: 07/26/24 08:28 Dose: Not Given Documented By: Admin: 07/25/24 20:37 Dose: 5 units Documented By: KAYLA Co-signed By: REINIER Admin: 07/25/24 18:44 Dose: 4 units Documented By: VIANCA Co-signed By: EDI Levothyroxine Sodium (Levothyroxine Sodium 50 Mcg Tablet) [address] [facility] Stop: 08/25/24 06:29 Last Admin: 07/26/24 05:37 Dose: 50 mcg Documented By: KAYLA Miscellaneous (Order Awaiting Action - Zafirlukast) 1 each N/A QS [facility] Stop: 08/25/24 00:00 Last Admin: 07/26/24 09:45 Dose: Not Given Documented By: Admin: 07/26/24 00:16 Dose: Not Given Documented By: KAYLA Simvastatin (Simvastatin 40 Mg Tab) [address] [facility] Stop: 08/24/24 20:59 Last Admin: 07/25/24 20:38 Dose: 40 mg Documented By: KAYLA Discontinued Medications Albuterol (Albut/Ipratrop 3mg/0.5mg Neb 3 Ml Vial) 3 ml NEB NOW STA; Protocol Stop: 07/25/24 16:14 Last Admin: 07/25/24 16:54 Dose: 3 ml Documented By: EFRA Furosemide (Furosemide Inj 20 Mg/2 Ml Vial) 20 mg IV ONE ONE Stop: 07/25/24 17:57 Last Admin: 01/31/25 17:59 Dose: 20 mg Documented By: EFRA Sodium Chloride (Nss) 100 mls @ 15 mls/hr IV .Q6H40M PRN PRN Reason: For Transfusion Duration Stop: 07/25/24 21:11 Last Infusion: 07/26/24 14:14 Dose: Infused Documented By: Infusion: 07/25/24 14:26 Dose: 0 mls/hr Documented By: Admin: 07/25/24 14:14 Dose: 15 mls/hr Documented By: EFRA Pantoprazole Sodium 80 mg/ (Dextrose) 120 mls @ 480 mls/hr IV ONE STA Stop: 07/25/24 13:31 Last Infusion: 07/25/24 14:25 Dose: Infused Documented By: Admin: 07/25/24 13:53 Dose: 480 mls/hr Documented By: EFRA Pantoprazole Sodium (Protonix) 40 mg in 10 mls @ 5 mls/min IV QPM ONELIA Stop: 08/24/24 20:59 Last Admin: 07/25/24 21:02 Dose: 5 mls/min Documented By: KAYLA Discharge Plan Visit Data Chief Complaint: Abnormal Labs/Diagnostic Testing Stated Complaint: ABN BLOOD WORK ED Provider: Redd Hays Discharge Problem: Acute upper gastrointestinal bleeding, Acute blood loss anemia, Atrial fibrillation with rapid ventricular response Patient Disposition: Admitted As Inpatient Discharge Instructions Interventions: ED Discharge Assessment Last Done: 07/25/24 17:17
[2024-07-25 13:24] LABS: Hematocrit (blood only) 20.2 % (37.0-47.0); Hemoglobin 5.9 g/dl (12.0-16.0); Mean Corpuscular Hemoglobin 21.8 pg (25.0-34.0); Mean Corpuscular Hgb Conc 29.2 g/dL (32.0-36.0); Mean Corpuscular Volume 74.5 fL (80.0-100.0); Mean Platelet Volume 10.5 fL (9.4-12.4); Nucleated RBC # (auto) 0.02 K/uL (0.00-0.12); Nucleated RBC % (auto) 0.2 %; Platelet Count 430 K/uL (130-400); RDW Coefficient of Variation 14.7 % (11.5-14.5); RDW Standard Deviation 40.3 fL (36.4-46.3); Red Blood Count 2.71 M/uL (4.20-5.40); White Blood Count 10.65 K/ul (4.8-10.8)
[2024-07-25 13:36] LABS: Albumin Globulin Ratio 1.3 (0.9-2); Albumin Level 3.9 gm/dl (3.4-5.0); BUN Creatinine Ratio 24.3 (10-20); Bilirubin,Total 1.3 mg/dl (0.2-1.0); Calcium 8.9 mg/dl (8.6-10.3); Creatinine Clr Calc Pharmacy 36.6 ml/min; Globulin 3.1 gm/dl (2.5-4.0)
[2024-07-25 13:37] LABS: Troponin I High Sensitivity 44.3 pg/ml (0-14)
[2024-07-25 13:39] LABS: INR 1.1 (0.9-1.1); Partial Thromboplastin Ratio 0.8; Partial Thromboplastin Time 22 Seconds (21-31); Prothrombin Time 11.5 Seconds (9.0-12.0)
[2024-07-25] MEDS: PANTOprazole 80 MG in DEXTROSE 5% 100 ML IV STA (13:53)
[2024-07-25] MEDS: SODIUM CHLORIDE 0.9% 100 ML IV PRN (14:14)
--- NOTE | 2024-07-25 14:47 | Electrocardiogram Report ---
Test Reason : Blood Pressure : */* mmHG Vent. Rate : 125 BPM Atrial Rate : * BPM P-R Int : * ms QRS Dur : 80 ms QT Int : 302 ms P-R-T Axes : * 25 251 degrees QTcB Int : 435 ms Atrial fibrillation with rapid ventricular response Anteroseptal infarct , age undetermined Abnormal ECG When compared with ECG of 15-Aug-2019 10:37, Significant changes have occurred Confirmed by Kp Uribe ([id number]) on 07/25/2024 2:47:14 PM Referred By: Confirmed By: Kp Uribe
--- NOTE | 2024-07-25 15:05 | History & Physical Report ---
Date of Service July 25, 2024 Assessment & Plan (1) Anemia: Plan: Acute blood loss anemia, Secondary to GI bleed Outpatient labs showed a hemoglobin of 5.6, following weeks of generalized weakness Pale on exam Will type and screen, transfuse 2 units of blood Monitor H&H (2) GI bleed: Plan: Patient denies use of NSAIDs Hemoccult was positive in the ED Will start IV Protonix Consult GI Clear liquid diet, n.p.o. after midnight (3) Moderate persistent asthma, uncomplicated: Plan: Mild wheeze on exam Resume her home inhalers (4) 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, type 2: Plan: Patient went for her diabetes checkup today however the visit was cut short when it was noticed that she was anemic Will hold metformin Start insulin sliding scale However it seems blood glucose has been under good control, A1c was 6 (5) Afib: Plan: Noted to have atrial fibrillation on EKG new onset Rate is under fair control, currently 90's to 100s Check TSH 2D echo Consult cardiology (6) Mixed hearing loss: (7) Mental disability: (8) Hypertension: Plan Admit to telemetry Full code DVT prophylaxis SCDs History of Present Illness Chief Complaint: weakness, abnormal lab Primary Care Provider: Yessenia Marinelli MD Is an 83-year-old female history of mental disability, diabetes, hypertension, hypothyroidism, who went for her routine diabetes checkup today and the lab results showed she had a hemoglobin of 5.6. However according to the patient's caregiver from home so the history was obtained, patient has been having increasing worsening generalized weakness shortness of breath over the past couple of weeks. Upon visiting the diabetes doctor today, it was noticed that she was anemic and subsequently asked to come to the hospital for further eval ration. Here in the emergency department repeat CBC showed hemoglobin of 5.9. Hemoccult was also positive She was also found to be in new onset atrial fibrillation. Her blood was typed and screened received 1 unit of blood and will be admitted to the hospital for m anagement Allergies Allergy/AdvReac Type Severity Reaction Status Date / Time amoxicillin Allergy Unknown Verified 07/25/24 09:16 doxycycline Allergy Unknown Verified 07/25/24 09:16 aspirin AdvReac Unknown N/V Verified 07/25/24 09:16 Home Medications Medication Instructions Recorded Confirmed Type OneTouch Delica Lancets 30 gauge #100 ea 11/04/21 07/24/24 Rx (lancets) blood-glucose meter (OneTouch #1 ea 07/04/22 07/24/24 Rx Verio Flex Meter) albuterol sulfate 90 mcg/actuation 2 puff inhalation Q4H PRN 07/09/23 07/25/24 Rx aerosol inhaler shortness of breath or wheezing #8.5 grams fluticasone propionate 50 2 spray intranasal DAILY #16 grams 10/31/23 07/25/24 Rx mcg/actuation nasal spray,suspension (Flonase Allergy Relief) losartan 100 mg tablet 100 mg PO QAM #90 tabs 07/03/24 07/25/24 Rx aspirin 81 mg tablet,delayed 81 mg PO DAILY #90 tabs 07/07/24 07/25/24 Rx release OneTouch Verio test strips (blood #200 ea 07/17/24 07/24/24 Rx sugar diagnostic) budesonide-formoterol HFA 160 2 puff inhalation BID 07/24/24 07/25/24 History mcg-4.5 mcg/actuation aerosol inhaler (Symbicort) glipizide 5 mg tablet 5 mg PO QAM 07/24/24 07/25/24 History levothyroxine 50 mcg tablet 50 mcg PO QAM 07/24/24 07/25/24 History metformin 500 mg tablet,extended 500 mg PO BID 07/24/24 07/25/24 History release 24 hr simvastatin 40 mg tablet 40 mg PO QPM 07/24/24 07/25/24 History zafirlukast 20 mg tablet 20 mg PO BID 07/24/24 07/25/24 History hydrochlorothiazide 12.5 mg tablet 12.5 mg PO DAILY 07/25/24 07/25/24 History Past Med/Surg History Problem List (Updated 07/25/24 @ 14:59 by Klarissa Saeed MD) Afib GI bleed Moderate persistent asthma, uncomplicated Anemia 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, type 2 (Chronic) Mixed hearing loss Mental disability (Chronic) Hypertension (Chronic) Dyslipidemia (Chronic) Hypothyroidism (Chronic) Allergic rhinitis due to dust (Chronic) Medical History Tympanic membrane perforation Excessive cerumen in both ear canals Right calf pain Noncompliance w/medication treatment due to intermit use of medication Hypoglycemia Mild intellectual disabilities Chronic otitis media of left ear Chronic otitis media of right ear with effusion Hypothyroidism Hypertension Hyperlipidemia Hemorrhage following tonsillectomy and adenoidectomy Murmur Surgical History History of placement of ear tubes History of tooth extraction History of surgery on wrist History of cataract surgery History of ankle surgery History of myringoplasty History of hysterectomy Family History Sister Diabetes Hypertension Asthma Brother Stroke Other No family history of adverse response to anesthesia No family history of bleeding disorder Sudden Social History Smoking Status: Never smoker Second Hand Exposure: No; Do You Dip or Chew Tobacco: No; Hx Alcohol Use: No Hx Substance Use: No Preferred Language: Vincentian Communication Ability: Effective Ferryboat Ticket Taker Required: No Beliefs That Will Affect Care: None marital status: Single Current Living Situation: Other Current Living Situation Comment: lives with roomate current occupational status: disabled Feels Safe at Home: Yes Assistive Devices: None Review of Systems Review of Systems: unreliable due to Intellectual disability Physical Exam Physical Exam: The patient is awake, alert and oriented 3, well developed and well nourished, normocephalic and atraumatic, lying in bed and in no acute distress. HEENT--PERRL, EOMI, mucous membranes and oropharynx mildly dry Neck--supple. No JVD. No bruits. Thyroid normal, trachea midline, no adenopathy. Heart--normal S1 and S2. No murmurs, rubs or gallops. Lungs--clear bilaterally, no respiratory distress, no accessory muscle use. Abdomen--normal bowel sounds and soft. Extremities--no cyanosis or clubbing. No edema. Dermatologic--normal skin turgor, normal color, no abnormal lymph nodes, no rash. Neurologic--cranial nerves II through XII grossly intact. Rheumatologic--normal range of motion. Psychiatric--normal affect. Results & Data Results & Data Vital Signs (Past 12 Hours) Vital Signs Temp Pulse Pulse Resp BP BP Pulse Ox 07/25/24 14:31 98.1 F 94 H 24 135/66 97 07/25/24 14:17 98.1 F 98 H 23 117/78 98 07/25/24 13:33 96 H 23 108/75 95 07/25/24 13:23 107 H 07/25/24 12:33 98.2 F 131 H 20 109/70 98 O2 Del Method 07/25/24 14:31 07/25/24 14:17 07/25/24 13:33 Room Air 07/25/24 13:23 07/25/24 12:33 Room Air PG Care Time/CCT Total # of Minutes Spent Total Time Spent with Patient: Total time spent is greater than 50% in coordination of care (as documented) at patient's floor/unit and/or counseling patient: Coding Level of Care Code 94334 INT INP/OBS CARE 3/75MIN Diagnoses Anemia D64.9 GI bleed K92.2 Moderate persistent asthma, uncomplicated J45.40 Type 2 diabetes mellitus with both eyes affected by mild nonproliferative retinopathy and macular edema, without long-term current use of insulin E11.3213 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 terminal gauger insulin use: without snf use 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 complication status: with ophthalmic complications 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 complication detail: with diabetic retinopathy Diabetic retinopathy severity: with mild nonproliferative retinopathy 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 macular edema: with macular edema Laterality: bilateral Afib 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: bilateral Mental disability F79 Essential hypertension I10 Hypertension type: essential hypertension Time Spent (min) 75 (4) 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, type 2 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 snf insulin use: without snf use 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 complication status: with ophthalmic complications 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 complication detail: with diabetic retinopathy Diabetic retinopathy severity: with mild nonproliferative retinopathy 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 macular edema: with macular edema Laterality: bilateral Qualified Code(s): E11.3213 - Type 2 diabetes mellitus with mild nonproliferative diabetic retinopathy with macular edema, bilateral (6) Mixed hearing loss Laterality: bilateral Qualified Code(s): H90.6 - Mixed conductive and sensorineural hearing loss, bilateral (8) Hypertension Hypertension type: essential hypertension Qualified Code(s): I10 - Essential (primary) hypertension
[2024-07-25] MEDS: ALBUT/IPRATROP 3MG/0.5MG NEB 3 ML VIAL NEB STA (16:54)
[2024-07-25] MEDS ORDERED: ONDANSETRON INJ 2 MG/ML 2 ML VIAL IV PRN (17:08)
[2024-07-25] MEDS ORDERED: ACETAMINOPHEN 325 MG TAB PO PRN (17:08)
--- NOTE | 2024-07-25 17:47 | XRay Report ---
EXAM: Radiograph of the Chest 1 View INDICATION: Shortness of breath TECHNIQUE: Frontal view of the chest. COMPARISON: 03/19/2019 FINDINGS: Lungs and pleural spaces: The lungs are hyperinflated. There is mild pulmonary edema. There is a approximate 4.8 x 4.7 cm groundglass opacity in the right lung base. Small right pleural effusion noted. No pneumothorax. Heart: Stable prominent cardiac shadow. Mediastinum: Normal contour. Bones/joints: Degenerative changes noted in the scoliotic spine. No acute osseous abnormality noted. Soft tissues: No abnormality noted. No radiopaque foreign body noted. Upper abdomen: No abnormality noted. IMPRESSION: Mild pulmonary edema. Small groundglass infiltrate right lung base could reflect pneumonia including viral etiologies. Developing alveolar edema also considered. ACT 112: Negative or not required by law. Electronically signed by Mireya Briggs 07-25-2024 5:39 PM
[2024-07-25] MEDS: FUROSEMIDE INJ 20 MG/2 ML VIAL IV ONE (17:59)
[2024-07-25] MEDS: INSULIN ASPART PER UNIT CHARGE SC SCH (18:44)
[2024-07-25] MEDS: SIMVASTATIN 40 MG TAB PO SCH (20:38)
[2024-07-25] MEDS: PANTOprazole 40 MG/10 ML SYR IV SCH (21:02)
[2024-07-26] MEDS: LEVOTHYROXINE SODIUM 50 MCG TABLET PO SCH (05:37)
[2024-07-26 06:45] LABS: Hemoglobin 6.4 g/dl (12.0-16.0); Mean Corpuscular Hemoglobin 22.9 pg (25.0-34.0); Mean Corpuscular Hgb Conc 30.5 g/dL (32.0-36.0); Mean Platelet Volume 10.3 fL (9.4-12.4); Platelet Count 316 K/uL (130-400); RDW Coefficient of Variation 15.5 % (11.5-14.5); RDW Standard Deviation 42.8 fL (36.4-46.3)
--- NOTE | 2024-07-26 08:17 | Hospitalist Progress Note ---
Date of Service July 26, 2024 Assessment & Plan (1) Anemia: (2) Moderate persistent asthma, uncomplicated: (3) 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, type 2: (4) Afib: (5) Mixed hearing loss: (6) Mental disability: Plan 83 F presented with weakness and found to have profound anemia suspected to be acute blood loss and iron deficiency, new onset afib with controlled rate and severe on outpt echo, chronic issues with diabetes, HTN, hearing loss and mental disablitty Anemia, concern for GI blood loss, Hemoccult +, GI evaluation, transfusion support, on protonix will change to bid places her at risk for angiodysplasia and also shear forces from can promote thrombosis and cause relative depletion of VWF and create bleeding risk Afib, rate controlled, tsh normal check mag, care not to drop pressure with rate controlling agents as will reduce coronary perfusion pressure and could precipitate angina, consider dig if needed diabetes, now with clear liquid only status, follow bsg, Will hold metformin Start insulin sliding scale However it seems blood glucose has been under good control, A1c was 6 Asthma stable continue home inhalers attempted to call friend in chart without answer, given severe will need to have goals of care discussion at some point Full code DVT prophylaxis SCDs Admission and Anticipated Discharge Date Admission Date: July 25, 2024 Subjective pt is pleasant, c/o fatigue friends at bedside did leave quickly no immediate distress, no abd pain Physical Exam Physical Exam: pale concern for cognitive deficit may impact decision making cardiac is regular, no shrill murmur despite severe on Echo lungs clear abd is soft Results & Data Results & Data Vital Signs (Past 12 Hours) Vital Signs Temp Pulse Resp BP Pulse Ox O2 Del Method 07/26/24 03:52 97.9 F 91 H 18 115/65 93 Room Air Laboratory Results review cbc review chemistry discussed case with Cardiology Dr Sarmiento PG Care Time/CCT Total # of Minutes Spent Total Time Spent with Patient: Total time spent is greater than 50% in coordination of care (as documented) at patient's floor/unit and/or counseling patient: Coding Level of Care Code 29329 SUB INP/OBS CARE 3/50MIN Diagnoses Anemia D64.9 Moderate persistent asthma, uncomplicated J45.40 Type 2 diabetes mellitus with both eyes affected by mild nonproliferative retinopathy and macular edema, without long-term current use of insulin E11.3213 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 complication detail: with diabetic retinopathy 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 complication status: with ophthalmic complications 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 insulin use: without skilled nursing use 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 macular edema: with macular edema Diabetic retinopathy severity: with mild nonproliferative retinopathy Laterality: bilateral Afib 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: bilateral Mental disability F79 (3) 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, type 2 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 complication detail: with diabetic retinopathy 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 complication status: with ophthalmic complications 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
--- NOTE | 2024-07-26 09:20 | Gastrointestinal Consultation ---
Date of Consultation July 26, 2024 Assessment & Plan (1) Anemia: She has hypochromic microcytic anemia which is a sign of chronic GI blood loss, not acute GI bleeding. She does need EGD and colonoscopy-if she will go through the prep-and will plan to do this on Sunday as this is not an acute bleeding process and she needs prep. She agrees so far. History of Present Illness Reason for Consultation: anemia Attending Physician: Silvano Lopez MD History of Present Illness 83 year old female admitted with microcytic anemia and stool heme (+) in ED. Patient reports to me that she has no problems with her stomach. She has normal bowel movements and she says her stools are dark brown. She denies abdominal pain, nausea vomiting, heartburn or indigestion. She tells me she eats well. She does not think she has ever had EGD or colonoscopy as described to her and I see no records of them in the provider notes in her chart. Allergies Allergy/AdvReac Type Severity Reaction Status Date / Time amoxicillin Allergy Unknown Verified 07/25/24 09:16 doxycycline Allergy Unknown Verified 07/25/24 09:16 aspirin AdvReac Unknown N/V Verified 07/25/24 09:16 Home Medications Medication Instructions Recorded Confirmed Type OneTouch [employer] Lancets 30 gauge #100 ea 11/04/21 07/24/24 Rx (lancets) blood-glucose meter (OneTouch #1 ea 07/04/22 07/24/24 Rx Verio Flex Meter) albuterol sulfate 90 mcg/actuation 2 puff inhalation Q4H PRN 07/09/23 07/25/24 Rx aerosol inhaler shortness of breath or wheezing #8.5 grams fluticasone propionate 50 2 spray intranasal DAILY #16 grams 10/31/23 07/25/24 Rx mcg/actuation nasal spray,suspension (Flonase Allergy Relief) losartan 100 mg tablet 100 mg PO QAM #90 tabs 07/03/24 07/25/24 Rx aspirin 81 mg tablet,delayed 81 mg PO DAILY #90 tabs 07/07/24 07/25/24 Rx release OneTouch Verio test strips (blood #200 ea 07/17/24 07/24/24 Rx sugar diagnostic) budesonide-formoterol HFA 160 2 puff inhalation BID 07/24/24 07/25/24 History mcg-4.5 mcg/actuation aerosol inhaler (Symbicort) glipizide 5 mg tablet 5 mg PO QAM 07/24/24 07/25/24 History levothyroxine 50 mcg tablet 50 mcg PO QAM 07/24/24 07/25/24 History metformin 500 mg tablet,extended 500 mg PO BID 07/24/24 07/25/24 History release 24 hr simvastatin 40 mg tablet 40 mg PO QPM 07/24/24 07/25/24 History zafirlukast 20 mg tablet 20 mg PO BID 07/24/24 07/25/24 History hydrochlorothiazide 12.5 mg tablet 12.5 mg PO DAILY 07/25/24 07/25/24 History Patient History Medical History Chronic otitis media of left ear Chronic otitis media of right ear with effusion Right calf pain Noncompliance w/medication treatment due to intermit use of medication Excessive cerumen in both ear canals Tympanic membrane perforation Hypoglycemia Mild intellectual disabilities Hypothyroidism Hypertension Hyperlipidemia Hemorrhage following tonsillectomy and adenoidectomy CHILD Murmur Surgical History History of placement of ear tubes History of tooth extraction all teeth History of surgery on wrist closed reduction with external pinning History of cataract surgery RIGHT History of ankle surgery LEFT History of myringoplasty X2 History of hysterectomy Family History Sister Diabetes Hypertension Asthma Brother Stroke Other No family history of adverse response to anesthesia No family history of bleeding disorder Sudden Social History Smoking Status: Never smoker Second Hand Exposure: No; Do You Dip or Chew Tobacco: No; Hx Alcohol Use: No Hx Substance Use: No Preferred Language: Nigerien Communication Ability: Effective 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 Required: No Beliefs That Will Affect Care: None marital status: Single Current Living Situation: Alone Current Living Situation Comment: Lives at home alone with 2 cats; caregiver comes by twice a week current occupational status: disabled Feels Safe at Home: Yes Assistive Devices: None, Cane, Hearing Aid - Bilateral and Walker Review of Systems Review of Systems: Unobtainable due to cognitive status Physical Exam Constitutional: WD/WN, vitals as above Neck: trachea midline, no thyromegaly Respiratory: normal respiratory effort, lungs clear to auscultation Cardiovascular: RRR, no murmur, no edema Gastrointestinal (Abdomen): normal bowel sounds, soft, nontender, no hepatosplenomegaly Results & Data Vital Signs (Past 12 Hours) Vital Signs Temp Pulse Resp BP Pulse Ox O2 Del Method 07/26/24 08:27 37 C 99 H 20 127/68 95 Room Air 07/26/24 03:52 36.6 C 91 H 18 115/65 93 Room Air Laboratory Results 07/26/24 07/26/24 07/25/24 Range/Units 07:29 05:44 20:31 WBC 11.20 H (4.8-10.8) K/ul RBC 2.80 L (4.20-5.40) M/uL Hgb 6.4 L* (12.0-16.0) g/dl Hct 21.0 L (37.0-47.0) % MCV 75.0 L (80.0-100.0) fL MCH 22.9 L (25.0-34.0) pg MCHC 30.5 L (32.0-36.0) g/dL RDW Std Deviation 42.8 (36.4-46.3) fL RDW Coeff of Seda 15.5 H (11.5-14.5) % Plt Count 316 (130-400) K/uL MPV 10.3 (9.4-12.4) fL Absolute Nucleated RBC (0.00-0.12) K/uL Nucleated RBC % (auto) % PT (9.0-12.0) Seconds INR (0.9-1.1) APTT (21-31) Seconds PTT Ratio Sodium (136-145) mmol/L Potassium (3.5-5.1) mmol/L Chloride (98-107) mmol/L Carbon Dioxide (21-32) mmol/L Anion Gap (3-11) BUN (6-23) mg/dl Creatinine (0.6-1.2) mg/dl Est Cr Clr Drug Dosing ml/min eGFR BUN/Creatinine Ratio (10-20) Glucose (70-99(Fasting)) mg/dl POC Glucose 130 H 283 H (70-99) mg/dl Calcium (8.6-10.3) mg/dl Total Bilirubin (0.2-1.0) mg/dl AST (13-39) U/L ALT (7-52) U/L Alkaline Phosphatase (34-104) U/L Troponin I High Sens (0-14) pg/ml Total Protein (6.0-8.3) gm/dl Albumin (3.4-5.0) gm/dl Globulin (2.5-4.0) gm/dl Albumin/Globulin Ratio (0.9-2) TSH 0.911 (0.300-4.500) uIu/ml POC Stool Occult Blood (Negative) Blood Type Blood Type Recheck Antibody Screen Crossmatch 07/25/24 07/25/24 07/25/24 Range/Units 18:30 13:16 13:10 WBC (4.8-10.8) K/ul RBC (4.20-5.40) M/uL Hgb (12.0-16.0) g/dl Hct (37.0-47.0) % MCV (80.0-100.0) fL MCH (25.0-34.0) pg MCHC (32.0-36.0) g/dL RDW Std Deviation (36.4-46.3) fL RDW Coeff of Seda (11.5-14.5) % Plt Count (130-400) K/uL MPV (9.4-12.4) fL Absolute Nucleated RBC (0.00-0.12) K/uL Nucleated RBC % (auto) % PT (9.0-12.0) Seconds INR (0.9-1.1) APTT (21-31) Seconds PTT Ratio Sodium (136-145) mmol/L Potassium (3.5-5.1) mmol/L Chloride (98-107) mmol/L Carbon Dioxide (21-32) mmol/L Anion Gap (3-11) BUN (6-23) mg/dl Creatinine (0.6-1.2) mg/dl Est Cr Clr Drug Dosing ml/min eGFR BUN/Creatinine Ratio (10-20) Glucose (70-99(Fasting)) mg/dl POC Glucose 247 H (70-99) mg/dl Calcium (8.6-10.3) mg/dl Total Bilirubin (0.2-1.0) mg/dl AST (13-39) U/L ALT (7-52) U/L Alkaline Phosphatase (34-104) U/L Troponin I High Sens (0-14) pg/ml Total Protein (6.0-8.3) gm/dl Albumin (3.4-5.0) gm/dl Globulin (2.5-4.0) gm/dl Albumin/Globulin Ratio (0.9-2) TSH (0.300-4.500) uIu/ml POC Stool Occult Blood Positive A (Negative) Blood Type Blood Type Recheck O Positive Antibody Screen Crossmatch 07/25/24 07/25/24 Range/Units 12:54 12:49 WBC 10.65 (4.8-10.8) K/ul RBC 2.71 L (4.20-5.40) M/uL Hgb 5.9 L* (12.0-16.0) g/dl Hct 20.2 L* (37.0-47.0) % MCV 74.5 L (80.0-100.0) fL MCH 21.8 L (25.0-34.0) pg MCHC 29.2 L (32.0-36.0) g/dL RDW Std Deviation 40.3 (36.4-46.3) fL RDW Coeff of Seda 14.7 H (11.5-14.5) % Plt Count 430 H (130-400) K/uL MPV 10.5 (9.4-12.4) fL Absolute Nucleated RBC 0.02 (0.00-0.12) K/uL Nucleated RBC % (auto) 0.2 % PT 11.5 (9.0-12.0) Seconds INR 1.1 (0.9-1.1) APTT 22 (21-31) Seconds PTT Ratio 0.8 Sodium 135 L (136-145) mmol/L Potassium 4.0 (3.5-5.1) mmol/L Chloride 97 L (98-107) mmol/L Carbon Dioxide 26 (21-32) mmol/L Anion Gap 12 H (3-11) BUN 26 H (6-23) mg/dl Creatinine 1.07 (0.6-1.2) mg/dl Est Cr Clr Drug Dosing 36.6 ml/min eGFR 52.18 BUN/Creatinine Ratio 24.3 H (10-20) Glucose 336 H* (70-99(Fasting)) mg/dl POC Glucose (70-99) mg/dl Calcium 8.9 (8.6-10.3) mg/dl Total Bilirubin 1.3 H (0.2-1.0) mg/dl AST 11 L (13-39) U/L ALT 14 (7-52) U/L Alkaline Phosphatase 65 (34-104) U/L Troponin I High Sens 44.3 H (0-14) pg/ml Total Protein 7.0 (6.0-8.3) gm/dl Albumin 3.9 (3.4-5.0) gm/dl Globulin 3.1 (2.5-4.0) gm/dl Albumin/Globulin Ratio 1.3 (0.9-2) TSH (0.300-4.500) uIu/ml POC Stool Occult Blood (Negative) Blood Type O Positive Blood Type Recheck Antibody Screen NEGATIVE Crossmatch See Detail Diagnostic Findings Chest X-Ray 07/25/24 16:10 EXAM: Radiograph of the Chest 1 View INDICATION: Shortness of breath TECHNIQUE: Frontal view of the chest. COMPARISON: 03/19/2019 FINDINGS: Lungs and pleural spaces: The lungs are hyperinflated. There is mild pulmonary edema. There is a approximate 4.8 x 4.7 cm groundglass opacity in the right lung base. Small right pleural effusion noted. No pneumothorax. Heart: Stable prominent cardiac shadow. Mediastinum: Normal contour. Bones/joints: Degenerative changes noted in the scoliotic spine. No acute osseous abnormality noted. Soft tissues: No abnormality noted. No radiopaque foreign body noted. Upper abdomen: No abnormality noted. IMPRESSION: Mild pulmonary edema. Small groundglass infiltrate right lung base could reflect pneumonia including viral etiologies. Developing alveolar edema also considered. ACT 112: Negative or not required by law. Electronically signed by Mireya Briggs 07-25-2024 5:39 PM
[2024-07-26] MEDS: FLUTICASONE PROPIONATE NA SPR 16 GM BTL SCH (09:46)
[2024-07-26] MEDS: FLUTICASONE/VILANTEROL 200/25MCG 14 PUFFS/INHALER INH SCH (09:46)
[2024-07-26] MEDS ORDERED: SODIUM CHLORIDE 0.9% 100 ML IV PRN (11:00)
[2024-07-26] MEDS ORDERED: SODIUM CHLORIDE 0.9% 50 ML IV PRN (11:00)
--- NOTE | 2024-07-26 13:47 | Cardiology Consultation ---
Date of Consultation July 26, 2024 Assessment & Plan (1) Paroxysmal A-fib: New onset. Would not be overly aggressive with negative chronotropic medications given her borderline blood pressure and severe aortic stenosis. Her current rate is reasonable given her physiologic status (GI bleeding with anemia, bronchospasm, etc.), if she became inappropriately tachycardic (rate greater than 120 bpm) could use small dose of metoprolol tartrate (12.5 mg PRN every 6 hours) or if b ronchospasm is persistent and a concern could utilize digoxin (0.25 mg daily after loading dose). Obviously, no role for anticoagulation at this point in the context of profound anemia/GI bleed. (2) Severe aortic stenosis: Recent diagnosis. No acute intervention given multiple comorbidities. When appropriate, dialogue with caregivers regarding aggressiveness of intervention desired (would she be transcatheter aortic valve candidate in the future?). Current treatment is supportive, avoid hypotension/overdiuresis. She did receive a dose of IV furosemide, in the absence of more overt evidence of volume overload would not diurese further at this time. (3) Anemia: Contraindication to anticoagulation. (4) GI bleed: Evaluation underway. (5) Asthma: Significant ongoing bronchospasm which does not seem cardiogenic based on chest x-ray and neck veins. (6) Bronchospasm: (7) Mental disability: (8) 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, type 2: Plan Case discussed with . Will continue to follow. History of Present Illness Reason for Consultation: new onset afib Requesting Physician: Silvano Lopez MD Attending Physician: Silvano Lopez MD History of Present Illness 83-year-old woman with medical history of mental disability/asthma/diabetes (oral agents) with severe aortic stenosis noted on recent outpatient echocardiogram (yesterday), no other prior obvious cardiac history, who was admitted after she was noted to have a hemoglobin of 5.6 with heme positive stool, incidentally to be found in new onset atrial fibrillation with borderline rate control, and demonstrating diffuse bronchospasm. Despite all this, she was in good spirits and had no major somatic complaints at the time my evaluation this morning. She denied chest pain, dyspnea at rest, subjective palpitations, or lightheadedness. Telemetry showed atrial fibrillation with generally controlled rate (90-100 bpm with occasional rates up to 115 bpm). ECG on admission showed atrial fibrillation with rate 125 bpm, old anteroseptal infarct, and diffuse nonspecific ST-T wave abnormalities. Troponin was 44. Echocardiogram yesterday showed EF 50-55%, severe aortic stenosis, moderate to severe MR/TR, severe pulmonary hypertension. No prior study for comparison. Chest x-ray showed hyperaeration with minimally increased pulmonary vasculature (to my eye). At the time my evaluation this morning she was fairly comfortable. Allergies Allergy/AdvReac Type Severity Reaction Status Date / Time amoxicillin Allergy Unknown Verified 07/25/24 09:16 doxycycline Allergy Unknown Verified 07/25/24 09:16 aspirin AdvReac Unknown N/V Verified 07/25/24 09:16 Home Medications Medication Instructions Recorded Confirmed Type OneTouch [employer] Lancets 30 gauge #100 ea 11/04/21 07/24/24 Rx (lancets) blood-glucose meter (OneTouch #1 ea 07/04/22 07/24/24 Rx Verio Flex Meter) albuterol sulfate 90 mcg/actuation 2 puff inhalation Q4H PRN 07/09/23 07/25/24 Rx aerosol inhaler shortness of breath or wheezing #8.5 grams fluticasone propionate 50 2 spray intranasal DAILY #16 grams 10/31/23 07/25/24 Rx mcg/actuation nasal spray,suspension (Flonase Allergy Relief) losartan 100 mg tablet 100 mg PO QAM #90 tabs 07/03/24 07/25/24 Rx aspirin 81 mg tablet,delayed 81 mg PO DAILY #90 tabs 07/07/24 07/25/24 Rx release OneTouch Verio test strips (blood #200 ea 07/17/24 07/24/24 Rx sugar diagnostic) budesonide-formoterol HFA 160 2 puff inhalation BID 07/24/24 07/25/24 History mcg-4.5 mcg/actuation aerosol inhaler (Symbicort) glipizide 5 mg tablet 5 mg PO QAM 07/24/24 07/25/24 History levothyroxine 50 mcg tablet 50 mcg PO QAM 07/24/24 07/25/24 History metformin 500 mg tablet,extended 500 mg PO BID 07/24/24 07/25/24 History release 24 hr simvastatin 40 mg tablet 40 mg PO QPM 07/24/24 07/25/24 History zafirlukast 20 mg tablet 20 mg PO BID 07/24/24 07/25/24 History hydrochlorothiazide 12.5 mg tablet 12.5 mg PO DAILY 07/25/24 07/25/24 History Patient History Medical History Chronic otitis media of left ear Chronic otitis media of right ear with effusion Right calf pain Noncompliance w/medication treatment due to intermit use of medication Excessive cerumen in both ear canals Tympanic membrane perforation Hypoglycemia Mild intellectual disabilities Hypothyroidism Hypertension Hyperlipidemia Hemorrhage following tonsillectomy and adenoidectomy CHILD Murmur Surgical History History of placement of ear tubes History of tooth extraction all teeth History of surgery on wrist closed reduction with external pinning History of cataract surgery RIGHT History of ankle surgery LEFT History of myringoplasty X2 History of hysterectomy Family History Sister Diabetes Hypertension Asthma Brother Stroke Other No family history of adverse response to anesthesia No family history of bleeding disorder Sudden Social History Smoking Status: Never smoker Second Hand Exposure: No; Do You Dip or Chew Tobacco: No; Hx Alcohol Use: No Hx Substance Use: No Preferred Language: Haitian Communication Ability: Effective Pleater Hand Required: No Beliefs That Will Affect Care: None marital status: Single Current Living Situation: Alone Current Living Situation Comment: Lives at home alone with 2 cats; caregiver comes by twice a week current occupational status: disabled Feels Safe at Home: Yes Assistive Devices: None, Cane, Hearing Aid - Bilateral and Walker Physical Exam Physical Exam: Elderly white female in no acute distress. BP normotensive. Pulse 100 bpm and irregular. Respirations 20 but unlabored. Skin: no ecchymoses or generalized lesions. HEENT: unremarkable. Neck: JVP with increased respiratory variation, meniscus only minimally above the clavicle, transmitted murmur to the carotids. Lungs: Diffuse expiratory wheezing. No stridor or accessory muscle use. No abdominal paradox. Cardiac: Irregular/borderline tachycardic rhythm, and audible aortic closure sound, 3/6 systolic ejection murmur right upper sternal border rating to the carotids. Abdomen: benign. Extremities: no edema, pulses intact. Neurologic: Answers simple questions appropriately, grossly nonfocal. Results & Data Laboratory Results WBC 11.2, hemoglobin increased from 5.9-6.4 overnight, normal platelet count. Labs and S2 normal electrolytes, BUN 26, creatinine 1.07. Hemoglobin A1c 6.6%. Normal TSH. Troponin as noted in HPI Diagnostic Findings Chest x-ray and ECG as noted in HPI PG Care Time/CCT Total # of Minutes Spent Total Time Spent with Patient: Total time spent is greater than 50% in coordination of care (as documented) at patient's floor/unit and/or counseling patient: Coding Level of Care Code 13527 IN/OBS CONSULT LVL 4,60M Diagnoses Paroxysmal A-fib I48.0 Severe aortic stenosis I35.0 Anemia D64.9 GI bleed K92.2 Asthma J45.909 Bronchospasm J98.01 Mental disability F79 Type 2 diabetes mellitus with both eyes affected by mild nonproliferative retinopathy and macular edema, without long-term current use of insulin E11.3213 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 supervisor intermediates insulin use: without fdc use 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 complication status: with ophthalmic complications 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 complication detail: with diabetic retinopathy Diabetic retinopathy severity: with mild nonproliferative retinopathy 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 macular edema: with macular edema Laterality: bilateral (8) 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, type 2 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 fdc insulin use: without fdc use 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 complication status: with ophthalmic complications 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 complication detail: with diabetic retinopathy Diabetic retinopathy severity: with mild nonproliferative retinopathy 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 macular edema: with macular edema Laterality: bilateral Qualified Code(s): E11.3213 - Type 2 diabetes mellitus with mild nonproliferative diabetic retinopathy with macular edema, bilateral
[2024-07-26] MEDS: ALBUTEROL HFA 8 GM INHALER INH PRN (15:54)
[2024-07-26] MEDS: PANTOprazole 40 MG/10 ML SYR IV SCH (20:14)
[2024-07-27 07:41] LABS: Hematocrit (blood only) 25.8 % (37.0-47.0); Hemoglobin 7.9 g/dl (12.0-16.0); Mean Corpuscular Hemoglobin 23.6 pg (25.0-34.0); Mean Corpuscular Hgb Conc 30.6 g/dL (32.0-36.0); Mean Platelet Volume 10.1 fL (9.4-12.4); Platelet Count 266 K/uL (130-400); RDW Coefficient of Variation 15.9 % (11.5-14.5); RDW Standard Deviation 44.4 fL (36.4-46.3); Red Blood Count 3.35 M/uL (4.20-5.40); White Blood Count 9.94 K/ul (4.8-10.8)
--- NOTE | 2024-07-27 07:45 | Hospitalist Progress Note ---
Date of Service July 27, 2024 Assessment & Plan (1) Anemia: (2) Moderate persistent asthma, uncomplicated: (3) 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, type 2: (4) Afib: (5) Mixed hearing loss: (6) Mental disability: Plan 83 F presented with weakness and found to have profound anemia suspected to be acute blood loss and iron deficiency, new onset afib with controlled rate and severe on outpt echo, chronic issues with diabetes, HTN, hearing loss and mental disablitty Anemia, concern for GI blood loss, Hemoccult +, GI evaluation, transfusion support, on protonix will change to bid appropriate rise in hgb after transfusion of 2 units, severe iron deficiency, wll have a dose of venofer severe places her at risk for angiodysplasia and also shear forces from can promote thrombosis and cause relative depletion of VWF and create bleeding risk Afib, rate controlled, tsh normal, augment low potassium, care not to drop pressure with rate controlling agents as will reduce coronary perfusion pressure and could precipitate angina, starting low dose metoprolol 07/27 diabetes, now with clear liquid only status, follow bsg, Will hold metformin Start insulin sliding scale However it seems blood glucose has been under good control, A1c was 6 Asthma stable continue home inhalers attempted to call friend in chart 07/27, pt states Jada helps her, without answer left message, given severe will need to have goals of care discussion at some point Full code DVT prophylaxis SCDs Admission and Anticipated Discharge Date Admission Date: July 25, 2024 Subjective Pt has had no issues with transfusion and her Severe , did have some tachycardia, will start low dose metoprolol and augment her K+ Physical Exam Physical Exam: pt continues to look pale, no complaints of chest pain or shortness of breath cardiac is tachycardic, now with HARJINDER at [facility] lungs are clear abd is soft and non tender Results & Data Results & Data Vital Signs (Past 12 Hours) Vital Signs Temp Pulse Pulse Resp BP Pulse Ox O2 Del Method 07/27/24 07:42 97.9 F 108 H 18 128/49 L 93 Room Air 07/27/24 07:00 Room Air 07/27/24 03:46 98.3 F 102 H 18 115/70 92 Room Air 07/26/24 23:40 97.8 F 88 20 118/73 93 Room Air 07/26/24 23:30 99 H 07/26/24 19:53 Room Air Laboratory Results review cbc, appropriate rise with transfusion review prp, augment K+ po review iron level very low even after transfusion ,will augment PG Care Time/CCT Total # of Minutes Spent Total Time Spent with Patient: Total time spent is greater than 50% in coordination of care (as documented) at patient's floor/unit and/or counseling patient: Coding Level of Care Code 57742 SUB INP/OBS CARE 3/50MIN Diagnoses Anemia D64.9 Moderate persistent asthma, uncomplicated J45.40 Type 2 diabetes mellitus with both eyes affected by mild nonproliferative retinopathy and macular edema, without long-term current use of insulin E11.3213 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 complication detail: with diabetic retinopathy 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 complication status: with ophthalmic complications 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 custodial insulin use: without custodial use 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 macular edema: with macular edema Diabetic retinopathy severity: with mild nonproliferative retinopathy Laterality: bilateral Afib 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: bilateral Mental disability F79 (3) 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, type 2 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 complication detail: with diabetic retinopathy 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 complication status: with ophthalmic complications 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 custodial insulin use: without custodial use 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 macular edema: with macular edema Diabetic retinopathy severity: with mild nonproliferative retinopathy Laterality: bilateral Qualified Code(s): E11.3 - 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
[2024-07-27 08:06] LABS: BUN Creatinine Ratio 15.1 (10-20); Calcium 8.1 mg/dl (8.6-10.3); Creatinine Clr Calc Pharmacy 45.3 ml/min; Potassium 3.4 mmol/L (3.5-5.1)
--- NOTE | 2024-07-27 09:44 | Gastroenterology Progress Note ---
Date of Service July 27, 2024 Assessment & Plan (1) Anemia: Plan: Iron deficiency anemia that needs workup. Plan EGD and colonoscopy for tomorrow. Procedure and risks discussed. She agrees Admission and Anticipated Discharge Date Admission Date: July 25, 2024 Subjective No complaints. H/H are stable. Pleasant Physical Exam Physical Exam: Pleasant in no distress Constitutional: WD/WN, vitals as above Results & Data Vital Signs (Past 12 Hours) Vital Signs Temp Pulse Pulse Resp BP Pulse Ox O2 Del Method 07/27/24 07:42 36.6 C 108 H 18 128/49 L 93 Room Air 07/27/24 07:00 Room Air 07/27/24 03:46 36.8 C 102 H 18 115/70 92 Room Air 07/26/24 23:40 36.6 C 88 20 118/73 93 Room Air 07/26/24 23:30 99 H
[2024-07-27] MEDS: POTASSIUM CHLORIDE CRTAB 20 MEQ TABCR PO STA (13:00)
[2024-07-27] MEDS: METOPROLOL TARTRATE 25 MG TAB PO ONE (13:01)
[2024-07-27] MEDS: IRON SUCROSE 200 MG in SODIUM CHLORIDE 0.9% 100 ML IV ONE (13:04)
[2024-07-27] MEDS: MAGNESIUM SULFATE / D5W 1 GM/100 ML BAG IV ONE (14:31)
--- NOTE | 2024-07-27 15:38 | Cardiology Progress Note ---
Date of Service July 27, 2024 Assessment & Plan (1) Paroxysmal A-fib: Plan: Ventricular response to atrial flutter shows no sustained tachycardia, nonetheless to prevent tachycardia given that BP is now normotensive would recommend initiating low-dose beta-ellen, metoprolol tartrate 12.5 mg every 12 hours. Obviously, no role for anticoagulation given major GI bleed/profound anemia. (2) Severe aortic stenosis: Plan: At some point would recommend discussion regarding patient and/or family thoughts on desired level of care/intervention. Would TAVR be a consideration? (3) Anemia: (4) GI bleed: (5) Asthma: Plan: Bronchospasm markedly improved. (6) Bronchospasm: (7) Mental disability: (8) 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, type 2: Plan Case discussed with . Will continue to follow. Admission and Anticipated Discharge Date Admission Date: July 25, 2024 Subjective Uneventful night. Patient denies any complaints, noting no chest pain, dyspnea, palpitations, or lightheadedness. Telemetry showed atrial flutter with ventricular rate 90-115 bpm with sporadic PVCs versus aberrancy. Physical Exam Physical Exam: Elderly white female in no acute distress. BP normotensive. Pulse 90 bpm and irregular. Respirations 18 and unlabored. Skin: no ecchymoses or generalized lesions. HEENT: unremarkable. Neck: JVP with increased respiratory variation, meniscus only minimally above the clavicle, transmitted murmur to the carotids. Lungs: Mild occasional wheezing. No stridor or accessory muscle use. No abdominal paradox. Cardiac: Irregular rhythm, and audible aortic closure sound, 3/6 systolic ejection murmur right upper sternal border rating to the carotids. Abdomen: benign. Extremities: no edema, pulses intact. Neurologic: Answers simple questions appropriately, grossly nonfocal. Results & Data Vital Signs (Past 12 Hours) Vital Signs Temp Pulse Resp BP Pulse Ox O2 Del Method 07/27/24 15:00 97.7 F 95 H 18 133/51 L 94 Room Air 07/27/24 11:16 97.5 F L 97 H 16 134/56 L 93 Room Air 07/27/24 07:42 97.9 F 108 H 18 128/49 L 93 Room Air 07/27/24 07:00 Room Air 07/27/24 03:46 98.3 F 102 H 18 115/70 92 Room Air Laboratory Results Hemoglobin 7.9, normal white count and platelet count. Potassium 3.4, BUN 13, creatinine 0.86. PG Care Time/CCT Total # of Minutes Spent Total Time Spent with Patient: Total time spent is greater than 50% in coordination of care (as documented) at patient's floor/unit and/or counseling patient: Coding Level of Care Code 03207 SUB INP/OBS CARE 2/35MIN Diagnoses Paroxysmal A-fib I48.0 Severe aortic stenosis I35.0 Anemia D64.9 GI bleed K92.2 Asthma J45.909 Bronchospasm J98.01 Mental disability F79 Type 2 diabetes mellitus with both eyes affected by mild nonproliferative retinopathy and macular edema, without long-term current use of insulin E11.3213 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 technician terminal and repeater insulin use: without custodial use 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 complication status: with ophthalmic complications 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 complication detail: with diabetic retinopathy Diabetic retinopathy severity: with mild nonproliferative retinopathy 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 macular edema: with macular edema Laterality: bilateral (8) 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, type 2 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 technician terminal and repeater insulin use: without technician terminal and repeater use 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 complication status: with ophthalmic complications 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 complication detail: with diabetic retinopathy Diabetic retinopathy severity: with mild nonproliferative retinopathy 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 macular edema: with macular edema Laterality: bilateral Qualified Code(s): E11.3213 - Type 2 di abetes mellitus with mild nonproliferative diabetic retinopathy with macular edema, bilateral
[2024-07-27] MEDS: LAVAGE SOLUTION 4000ML PO SCH (17:54)
[2024-07-27] MEDS: METOPROLOL TARTRATE 25 MG TAB PO SCH (20:38)
[2024-07-28 07:41] LABS: Hematocrit (blood only) 26.4 % (37.0-47.0); Hemoglobin 8.2 g/dl (12.0-16.0); Mean Corpuscular Hemoglobin 24.1 pg (25.0-34.0); Mean Corpuscular Hgb Conc 31.1 g/dL (32.0-36.0); Mean Corpuscular Volume 77.6 fL (80.0-100.0); Mean Platelet Volume 10.7 fL (9.4-12.4); Platelet Count 285 K/uL (130-400); RDW Coefficient of Variation 16.6 % (11.5-14.5); White Blood Count 10.84 K/ul (4.8-10.8)
[2024-07-28 08:02] LABS: BUN Creatinine Ratio 11.6 (10-20); Calcium 8.1 mg/dl (8.6-10.3); Creatinine Clr Calc Pharmacy 42.1 ml/min; Potassium 3.8 mmol/L (3.5-5.1)
--- NOTE | 2024-07-28 10:21 | Gastroenterology Progress Note ---
Date of Service July 28, 2024 Assessment & Plan (1) Iron deficiency anemia: Plan: -Continue to monitor H/H -Continue IV PPI, can switch to IV Protonix 40 mg BID push -Given patient's cardiopulmonary status at the moment along with the fact that she has not finished a bowel prep, GI would pause on further endoscopic evaluation at this time and allow for more meaningful respiratory recovery. We have engaged anesthesia to determine the safety moving forward as well. Admission and Anticipated Discharge Date Admission Date: July 25, 2024 Supervising Physician Co-Signing Physician Notes Patient examined at the bedside. Significant wheezing throughout all lung bui. Patient has iron deficiency anemia. This is complicated by tight aortic stenosis and severe pulmonary hypertension. She is at considerable risk with her current pulmonary status and aortic status of endoscopic procedures. Recommend blood transfusion if required and correction of iron deficiency anemia including IV iron. I reviewed with her niece who is at the bedside. My recommendations. Also discussions about whether cardiac intervention is desired and encouraged him to discuss with cardiology. This point I am not recommending endoscopic evaluation due to risks and I think a trial of treatment of her anemia safest way to proceed at present Subjective Patient is an 83 yo female hospitalized with bronchitis. GI has been involved for an iron deficiency anemia. Patient was to be on for an EGD & colonoscopy today, however patient has not yet completed prep and she continues to wheeze. She was up out of bed to the bathroom and notes she has felt short of breath since that time. HR this AM 129. No GI bleeding or abdominal pain. No other GI symptoms otherwise. H/H 8.2/26.4. Review of Systems Constitutional: no fever and no chills Respiratory: + cough and + dyspnea on exertion Cardiovascular: no chest pain Gastrointestinal: no abdominal pain, no blood in stools and no melena Physical Exam Constitutional: well developed Respiratory: + audible wheezes Cardiovascular: Rate/Rhythm: + tachycardic Gastrointestinal (Abdomen): normal bowel sounds, soft, nontender, no hepatosplenomegaly Psychiatric: Orientation: alert Results & Data Results & Data Vital Signs (Past 12 Hours) Vital Signs Temp Pulse Pulse Resp BP Pulse Ox O2 Del Method 07/28/24 08:00 36.8 C 129 H 16 114/56 L 97 Room Air 07/28/24 07:00 89 07/28/24 03:04 91 H 07/28/24 02:14 36.7 C 96 H 18 120/65 97 Room Air 07/27/24 22:54 36.8 C 96 H 17 113/67 91 Room Air PG Care Time/CCT Total # of Minutes Spent Total Time Spent with Patient: Total time spent is greater than 50% in coordination of care (as documented) at patient's floor/unit and/or counseling patient: Coding Level of Care Code 93135 SUB INP/OBS CARE 3/50MIN Diagnoses Iron deficiency anemia D50.9
[2024-07-28] MEDS: METOPROLOL TARTRATE 25 MG TAB PO ONE (10:23)
--- NOTE | 2024-07-28 10:26 | Communication Note ---
Date of Service: July 28, 2024 Asked by GI doc to evaluate pt readness for GI procedure. Chart reviewed, d/w Dr. Sarmiento - cardiology. Pt with sign PMH including echo sign. and Pulm HTN, AF w/rate control not yet achieved. Given that there are mitigating circumstances we agree that holding off on the GI procedure for today is good with further work-up and rate control necessary - Dr. Lipscomb
[2024-07-28] MEDS: METOPROLOL TARTRATE 25 MG TAB PO SCH (13:59)
--- NOTE | 2024-07-28 17:16 | Cardiology Progress Note ---
Date of Service July 28, 2024 Assessment & Plan (1) Paroxysmal A-fib: Plan: Agree with further increase in metoprolol (now up to 25 mg 3 times daily) for better heart rate control. Etiology for tachycardia uncertain, perhaps her bowel prep resulted in mild volume depletion. If hemodynamics favorable, okay to proceed with endoscopy tomorrow. Despite severe aortic stenosis, she tolerates even marked tachycardia well and therefore should be able to tolerate endoscopy when her hemodynamics are more favorable than this. (2) Severe aortic stenosis: Plan: At some point would recommend discussion regarding patient and/or family thoughts on desired level of care/intervention. Would TAVR be a consideration? (3) Anemia: (4) GI bleed: (5) Asthma: Plan: Bronchospasm markedly improved. (6) Bronchospasm: (7) Mental disability: (8) 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, type 2: Plan Case discussed with . Will continue to follow. Admission and Anticipated Discharge Date Admission Date: July 25, 2024 Subjective No new complaints. She was to undergo EGD and colonoscopy but has been demonstrating frequent tachycardia today, defer this until tomorrow. She denies chest pain, dyspnea, subjective palpitations, or lightheadedness. Telemetry showed atrial fibrillation with ventricular rate 100-120 bpm range, jumping up to 160 bpm at times. Physical Exam Physical Exam: Appears comfortable. Afebrile. BP 100/65 mmHg. Pulse 100 bpm and irregular. Respirations 18 unlabored. Skin: no ecchymoses or generalized lesions. HEENT: unremarkable. Neck: JVP with increased respiratory variation, meniscus only minimally above the clavicle, transmitted murmur to the carotids. Lungs: Mild occasional wheezing. No stridor or accessory muscle use. No abdominal paradox. Cardiac: Irregular rhythm, inaudible aortic closure sound, 3/6 systolic ejection murmur right upper sternal border rating to the carotids. Abdomen: benign. Extremities: no edema, pulses intact. Neurologic: Answers simple questions appropriately, grossly nonfocal. Results & Data Vital Signs (Past 12 Hours) Vital Signs Temp Pulse Pulse Resp BP Pulse Ox O2 Del Method 07/28/24 16:46 97.2 F L 100 H 18 100/65 97 Room Air 07/28/24 15:00 100 H 07/28/24 11:00 98.2 F 118 H 20 108/66 96 Room Air 07/28/24 08:45 Room Air 07/28/24 08:00 98.2 F 129 H 16 114/56 L 97 Room Air 07/28/24 07:00 89 Laboratory Results WBC 10.84, hemoglobin 8.4, platelet count 285,000. Normal electrolytes, BUN 11, creatinine 0.95. PG Care Time/CCT Total # of Minutes Spent Total Time Spent with Patient: Total time spent is greater than 50% in coordination of care (as documented) at patient's floor/unit and/or counseling patient: Coding Level of Care Code 09929 SUB INP/OBS CARE 2MIN Diagnoses Paroxysmal A-fib I48.0 Severe aortic stenosis I35.0 Anemia D64.9 GI bleed K92.2 Asthma J45.909 Bronchospasm J98.01 Mental disability F79 Type 2 diabetes mellitus with both eyes affected by mild nonproliferative retinopathy and macular edema, without long-term current use of insulin E11.3213 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 ux design manager insulin use: without group home use 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 complication status: with ophthalmic complications 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 complication detail: with diabetic retinopathy Diabetic retinopathy severity: with mild nonproliferative retinopathy 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 macular edema: with macular edema Laterality: bilateral (8) 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, type 2 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 ux design manager insulin use: without ux design manager use 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 complication status: with ophthalmic complications 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 complication detail: with diabetic retinopathy Diabetic retinopathy severity: with mild nonproliferative retinopathy 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 macular edema: with macular edema Laterality: bilateral Qualified Code(s): E11.3213 - Type 2 diabetes mellitus with mild nonproliferative diabetic retinopathy with macular edema, bilateral
[2024-07-28] MEDS: PANTOprazole 40 MG/10 ML SYR IV SCH (21:14)
--- NOTE | 2024-07-28 22:28 | Hospitalist Progress Note ---
Date of Service July 28, 2024 Assessment & Plan (1) Anemia: (2) Moderate persistent asthma, uncomplicated: (3) 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, type 2: (4) Afib: (5) Mixed hearing loss: (6) Mental disability: Plan 83 F presented with weakness and found to have profound anemia suspected to be acute blood loss and iron deficiency, new onset afib with controlled rate and severe on outpt echo, chronic issues with diabetes, HTN, hearing loss and mental disablitty Anemia, concern for GI blood loss, Hemoccult +, GI evaluation, transfusion support, on protonix will change to bid appropriate rise in hgb after transfusion of 2 units, severe iron deficiency, wll have a dose of venofer severe places her at risk for angiodysplasia and also shear forces from can promote thrombosis and cause relative depletion of VWF and create bleeding risk plan for EGD and colonoscopy however due to tachycardia, postponed until tomorrow. Afib, rate controlled, tsh normal, augment low potassium, care not to drop pressure with rate controlling agents as will reduce coronary perfusion pressure and could precipitate angina, started low dose metoprolol 07/27 increased metoprolol to 25 mg PO TID on 2/3 d/w cardiology diabetes, now with clear liquid only status, follow bsg, Will hold metformin Start insulin sliding scale However it seems blood glucose has been under good control, A1c was 6 Asthma stable continue home inhalers attempted to call friend in chart 07/27, pt states Jada helps her, without answer left message, given severe will need to have goals of care discussion at some point Full code DVT prophylaxis SCDs Admission and Anticipated Discharge Date Admission Date: July 25, 2024 Subjective Patient reports no new symptoms. Physical Exam Physical Exam: pt lying in bed in NAD. cardiac is tachycardic, now with HARJINDER at [facility] lungs are clear abd is soft and non tender Results & Data Results & Data Vital Signs (Past 12 Hours) Vital Signs Temp Pulse Pulse Resp BP Pulse Ox O2 Del Method 07/28/24 20:16 Room Air 07/28/24 19:18 36.9 C 83 18 99/59 L 95 Room Air 07/28/24 16:46 36.2 C L 100 H 18 100/65 97 Room Air 07/28/24 15:00 100 H 07/28/24 11:00 36.8 C 118 H 20 108/66 96 Room Air PG Care Time/CCT Total # of Minutes Spent Total Time Spent with Patient: Total time spent is greater than 50% in coordination of care (as documented) at patient's floor/unit and/or counseling patient: Coding Level of Care Code 60615 SUB INP/OBS CARE 3/50MIN Diagnoses Anemia D64.9 Moderate persistent asthma, uncomplicated J45.40 Type 2 diabetes mellitus with both eyes affected by mild nonproliferative retinopathy and macular edema, without long-term current use of insulin E11.3213 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 complication detail: with diabetic retinopathy 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 complication status: with ophthalmic complications 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 longterm insulin use: without exterminator use 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 macular edema: with macular edema Diabetic retinopathy severity: with mild nonproliferative retinopathy Laterality: bilateral Afib 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: bilateral Mental disability F79 (3) 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, type 2 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 complication detail: with diabetic retinopathy 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 complication status: with ophthalmic complications 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 exterminator insulin use: without exterminator use 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 macular edema: with macular edema Diabetic retinopathy severity: with mild nonproliferative retinopathy Laterality: bilateral Qualified Code(s): E11.3213 - Type 2 diabetes mellitus with mild nonproliferative diabetic retinopathy with macular edema, bilateral (5) Mixed hearing loss Laterality: bilateral Qualified Code(s): H90.6 - Mixed conductive and sensorineural hearing loss, bilateral
[2024-07-29 06:33] LABS: Hematocrit (blood only) 26.3 % (37.0-47.0); Hemoglobin 8.1 g/dl (12.0-16.0); Mean Corpuscular Hgb Conc 30.8 g/dL (32.0-36.0); Mean Platelet Volume 10.8 fL (9.4-12.4); Platelet Count 203 K/uL (130-400); RDW Coefficient of Variation 17.3 % (11.5-14.5); RDW Standard Deviation 48.8 fL (36.4-46.3); Red Blood Count 3.37 M/uL (4.20-5.40); White Blood Count 10.52 K/ul (4.8-10.8)
[2024-07-29 06:52] LABS: BUN Creatinine Ratio 9.3 (10-20); Calcium 7.9 mg/dl (8.6-10.3); Creatinine Clr Calc Pharmacy 33.9 ml/min; Potassium 4.1 mmol/L (3.5-5.1)
--- NOTE | 2024-07-29 11:06 | XRay Report ---
XR chest 2V PA/lateral HISTORY: 83 years-old Female wheezing COMPARISON: 07/25/2024 TECHNIQUE: PA and lateral views of the chest FINDINGS: Cardiac silhouette is enlarged. Pulmonary vascular congestion with interstitial coarsening. No pneumo thorax. Small pleural effusions with mild right greater than left bibasilar consolidation which is si milar to prior. Bones appear grossly intact. IMPRESSION: 1. Cardiomegaly with interstitial pulmonary edema. 2. Small pleural effusions with right greater than left bibasilar opacities which may represent atele ctasis versus pneumonitis. ACT 112: Negative or not required by law. The above report was generated using voice recognition software. It may contain grammatical, syntax o r spelling errors. Electronically signed by: Fernie Martins M.D. 07/29/2024 11:04 AM
--- NOTE | 2024-07-29 11:31 | Cardiology Progress Note ---
Date of Service July 29, 2024 Assessment & Plan (1) Paroxysmal A-fib: Plan: Ventricular sponsor atrial fibrillation now much better controlled, continue current dose of metoprolol tartrate 25 mg 3 times daily. Okay to proceed with endoscopy. Anticoagulation contraindicated with GI bleed. No new recommendations. (2) Severe aortic stenosis: Plan: Asymptomatic. If family members/caregivers become available, would be glad to discuss risk/benefits of TAVR with them. (3) Anemia: (4) GI bleed: (5) Asthma: Plan: Bronchospasm markedly improved. (6) Bronchospasm: (7) Mental disability: (8) 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, type 2: Plan Case discussed with . Will continue to follow. Admission and Anticipated Discharge Date Admission Date: July 25, 2024 Subjective Uneventful night. No somatic complaints. Denies chest pain, dyspnea, palpitations, or lightheadedness. Telemetry showed atrial fibrillation with controlled ventricular rate of 80-90 bpm. Physical Exam Physical Exam: Appears comfortable. Afebrile. BP 122/74 mmHg. Pulse 90 bpm and irregular. Respirations 18 unlabored. Skin: no ecchymoses or generalized lesions. HEENT: unremarkable. Neck: JVP with increased respiratory variation, meniscus only minimally above the clavicle, transmitted murmur to the carotids. Lungs: Mild occasional wheezing. No stridor or accessory muscle use. No abdominal paradox. Cardiac: Irregular rhythm, inaudible aortic closure sound, 3/6 systolic ejection murmur right upper sternal border rating to the carotids. Abdomen: benign. Extremities: no edema, pulses intact. Neurologic: Answers simple questions appropriately, grossly nonfocal. Results & Data Vital Signs (Past 12 Hours) Vital Signs Temp Pulse Resp BP BP Pulse Ox O2 Del Method 07/29/24 08:00 Room Air 07/29/24 07:48 97.3 F L 89 18 122/74 94 Room Air 07/29/24 02:36 98.4 F 86 18 117/66 92 Room Air Laboratory Results Hemoglobin 8.1, normal white count platelet count. Normal electrolytes, BUN 11, creatinine 1.18. PG Care Time/CCT Total # of Minutes Spent Total Time Spent with Patient: Total time spent is greater than 50% in coordination of care (as documented) at patient's floor/unit and/or counseling patient: Coding Level of Care Code 95157 SUB INP/OBS CARE 235MIN Diagnoses Paroxysmal A-fib I48.0 Severe aortic stenosis I35.0 Anemia D64.9 GI bleed K92.2 Asthma J45.909 Bronchospasm J98.01 Mental disability F79 Type 2 diabetes mellitus with both eyes affected by mild nonproliferative retin opathy and macular edema, without long-term current use of insulin E11.3213 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 chcf insulin use: without manager terminal use 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 complication status: with ophthalmic complications 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 complication detail: with diabetic retinopathy Diabetic retinopathy severity: with mild nonproliferative retinopathy 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 macular edema: with macular edema Laterality: bilateral (8) 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, type 2 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 chcf insulin use: without manager terminal use 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 complication status: with ophthalmic complications 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 complication detail: with diabetic retinopathy Diabetic retinopathy severity: w ith mild nonproliferative retinopathy 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 macular edema: with macular edema Laterality: bilateral Qualified Code(s): E11.3213 - Type 2 diabetes mellitus with mild nonproliferative diabetic retinopathy with macular edema, bilateral
--- NOTE | 2024-07-29 12:30 | Gastroenterology Progress Note ---
Date of Service July 29, 2024 Assessment & Plan (1) Iron deficiency anemia: Plan: Please refer to notes from 07/28/24 regarding discussion and plans between GI and patient's family member at bedside. Given the patient is not actively bleeding, has a stable H/H, and has significant cardiopulmonary comorbidities, the benefits of endoscopic evaluation do not outweigh the risks at this time. Would favor conservative treatment of iron deficiency anemia for now. Continue PPI as prescribed. Continue to monitor H/H. Admission and Anticipated Discharge Date Admission Date: July 25, 2024 Supervising Physician Co-Signing Physician Notes Patient hemoglobin stable. Lungs sound better today. Patient does not have evidence of shilo gastrointestinal bleeding. I do believe that this probably represents blood loss from AVMs. It may take months to years to develop iron deficiency in this situation and often iron replacement can be sufficient to keep up to low-grade blood loss. As per my previous note patient has considerable risks to upper endoscopy and colonoscopy. Especially for what may be benign disease. And anemia predominantly appears to be due to lack of iron. I would recommend we treat her with a PPI to cover any peptic disease. Replace her with iron. We can follow her up in the office 10 to 14 days postdischarge. If her counts are improving on iron she could likely start anticoagulation at that time with observation for further bleeding. In the event of persistent falling H&H despite iron or evidence of shilo melena or hematochezia we can revisit the need for endoscopy at which time the benefits may outweigh the risks. Subjective Patient is an 83 yo female with significant cardiopulmonary comorbidities including Aortic stenosis. Due to her acute respiratory issue in addition to her heart history, significant discussion was had yesterday between Dr. Moulton and family member. Patient is not experiencing overt GI bleeding. H/H is stable at 8.1/26.3. Review of Systems Gastrointestinal: no abdominal pain, no hematemesis, no change in stools, no constipation, no diarrhea/loose stools and no blood in stools Physical Exam Respiratory: + audible wheezes Cardiovascular: Rate/Rhythm: regular rate +murmur Gastrointestinal (Abdomen): normal bowel sounds, soft, nontender, no hepatosplenomegaly Results & Data Results & Data Vital Signs (Past 12 Hours) Vital Signs Temp Pulse Resp BP BP Pulse Ox O2 Del Method 07/29/24 11:47 36.4 C L 89 18 93/58 L 96 Room Air 07/29/24 08:00 Room Air 07/29/24 07:48 36.3 C L 89 18 122/74 94 Room Air 07/29/24 02:36 36.9 C 86 18 117/66 92 Room Air PG Care Time/CCT Total # of Minutes Spent Total Time Spent with Patient: Total time spent is greater than 50% in coordination of care (as documented) at patient's floor/unit and/or counseling patient: Coding Level of Care Code 05291 SUB INP/OBS CARE 3/50MIN Diagnoses Iron deficiency anemia D50.9
[2024-07-29] MEDS: ZAFIRLUKAST 20 MG TAB PO SCH (13:43)
[2024-07-29] MEDS: IRON SUCROSE 300 MG in SODIUM CHLORIDE 0.9% 250 ML IV ONE (16:53)
[2024-07-29 17:46] LABS: Adenovirus PCR Not Detected (NotDetected); Bordetella parapertussis PCR Not Detected (NotDetected); Bordetella pertussis PCR Not Detected (NotDetected); Chlamydia pneumoniae PCR Not Detected (NotDetected); Coronavirus 229E PCR Not Detected (NotDetected); Coronavirus CoV-2 (COVID19)PCR Not Detected (NotDetected); Coronavirus HKU1 PCR Not Detected (NotDetected); Coronavirus NL63 PCR Not Detected (NotDetected); Coronavirus OC43PCR Not Detected (NotDetected); Human Metapneumovirus PCR Not Detected (NotDetected); Influenza A PCR Not Detected (NotDetected); Influenza B PCR Not Detected (NotDetected); Mycoplasma pneumoniae PCR Not Detected (NotDetected); Parainfluenza Virus 1 PCR Not Detected (NotDetected); Parainfluenza Virus 2 PCR Not Detected (NotDetected); Parainfluenza Virus 3 PCR Not Detected (NotDetected); Parainfluenza Virus 4 PCR Not Detected (NotDetected); Respiratory Syncytial VirusPCR Not Detected (NotDetected); Rhinovirus/Enterovirus PCR Not Detected (NotDetected)
[2024-07-29] MEDS: UMECLIDINIUM BROMIDE 62.5MCG/BLISTER 7 PUFFS/INHALER INH SCH (17:49)
--- NOTE | 2024-07-29 23:17 | Hospitalist Progress Note ---
Date of Service July 29, 2024 Assessment & Plan (1) Anemia: (2) Moderate persistent asthma, uncomplicated: (3) 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, type 2: (4) Afib: (5) Mixed hearing loss: (6) Mental disability: Plan 83 F presented with weakness and found to have profound anemia suspected to be acute blood loss and iron deficiency, new onset afib with controlled rate and severe on outpt echo, chronic issues with diabetes, HTN, hearing loss and mental disablitty Anemia, concern for GI blood loss, Hemoccult +, GI evaluation, transfusion support, on protonix will change to bid appropriate rise in hgb after transfusion of 2 units, severe iron deficiency, wll have a dose of venofer severe places her at risk for angiodysplasia and also shear forces from can promote thrombosis and cause relative depletion of VWF and create bleeding risk plan cancelled for EGD and colonoscopy however due to tachycardia/ wheezing. GI states risks outweigh benefits given hemoglobin is now stable ordered iron supplements Afib, rate controlled, tsh normal, augment low potassium, care not to drop pressure with rate controlling agents as will reduce coronary perfusion pressure and could precipitate angina, started low dose metoprolol 07/27 increased metoprolol to 25 mg PO TID on 2/3 d/w cardiology diabetes, now with clear liquid only status, follow bsg, Will hold metformin Start insulin sliding scale However it seems blood glucose has been under good control, A1c was 6 Asthma stable continue home inhalers added LAMA updated Alexandrea, also cardiology called her to discuss Full code DVT prophylaxis SCDs Admission and Anticipated Discharge Date Admission Date: July 25, 2024 Subjective Psatient reports no new complaints. Physical Exam Physical Exam: pt lying in bed in NAD. cardiac is RRR lungs are wheezing abd is soft and non tender Results & Data Results & Data Vital Signs (Past 12 Hours) Vital Signs Temp Pulse Pulse Resp BP BP Pulse Ox 07/29/24 22:50 36.6 C 85 18 98/63 L 93 07/29/24 19:17 36.6 C 83 18 102/56 L 93 07/29/24 19:11 07/29/24 15:27 99 H 18 97/58 L 96 07/29/24 14:28 36.3 C L 97 H 18 91/56 L 94 07/29/24 11:47 36.4 C L 89 18 93/58 L 96 O2 Del Method 07/29/24 22:50 Room Air 07/29/24 19:17 Room Air 07/29/24 19:11 Room Air 07/29/24 15:27 Room Air 07/29/24 14:28 Room Air 07/29/24 11:47 Room Air PG Care Time/CCT Total # of Minutes Spent Total Time Spent with Patient: Total time spent is greater than 50% in coordination of care (as documented) at patient's floor/unit and/or counseling patient: Coding Level of Care Code 01093 SUB INP/OBS CARE 3/50MIN Diagnoses Anemia D64.9 Moderate persistent asthma, uncomplicated J45.40 Type 2 diabetes mellitus with both eyes affected by mild nonproliferative retinopathy and macular edema, without long-term current use of insulin E11.3213 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 complication detail: with diabetic retinopathy 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 complication status: with ophthalmic complications 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 terminal gauger insulin use: without terminal gauger use 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 macular edema: with macular edema Diabetic retinopathy severity: with mild nonproliferative retinopathy Laterality: bilateral Afib 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: bilateral Mental disability F79 (3) 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, type 2 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 complication detail: with diabetic retinopathy 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 complication status: with ophthalmic complications 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 skilled nursing insulin use: without skilled nursing use 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 macular edema: with macular edema Diabetic retinopathy severity: with mild nonproliferative retinopathy Laterality: bilateral Qualified Code(s): E11.3213 - Type 2 diabetes mellitus with mild nonproliferative diabetic retinopathy with macular edema, bilateral (5) Mixed hearing loss Laterality: bilateral Qualified Code(s): H90.6 - Mixed conductive and sensorineural hearing loss, bilateral
[2024-07-30 06:41] LABS: Hematocrit (blood only) 25.7 % (37.0-47.0); Hemoglobin 7.9 g/dl (12.0-16.0); Mean Corpuscular Hemoglobin 24.2 pg (25.0-34.0); Mean Corpuscular Hgb Conc 30.7 g/dL (32.0-36.0); Mean Corpuscular Volume 78.6 fL (80.0-100.0); Mean Platelet Volume 10.5 fL (9.4-12.4); Platelet Count 259 K/uL (130-400); RDW Coefficient of Variation 17.9 % (11.5-14.5); Red Blood Count 3.27 M/uL (4.20-5.40); White Blood Count 11.23 K/ul (4.8-10.8)
[2024-07-30 07:03] LABS: BUN Creatinine Ratio 13.5 (10-20); Creatinine Clr Calc Pharmacy 38.9 ml/min; Potassium 3.7 mmol/L (3.5-5.1)
[2024-07-30] MEDS: FERROUS SULFATE 325 MG TAB PO SCH (08:02)
--- NOTE | 2024-07-30 12:42 | Cardiology Progress Note ---
Date of Service July 30, 2024 Assessment & Plan (1) Paroxysmal A-fib: Plan: Persistent atrial fibrillation with good rate control on low-dose metoprolol. Could consolidate to metoprolol succinate 50 mg daily. No role for anticoagulation given GI bleeding. (2) Severe aortic stenosis: Plan: Spoke with her caregiver Alexandrea. Patient has a sister that lives in the [place] area, therefore we will arrange through [facility] for follow-up and evaluation of potential transcatheter aortic valve replacement (TAVR). 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 Conservative management with iron supplementation planned.. (4) GI bleed: Plan: Hemoglobin low but stable. (5) Asthma: Plan: Bronchospasm markedly improved but some bronchospasm persists. No current evidence for volume overload and no role for diuretics. (6) Mental disability: Plan: Decisions via caregiver. (7) 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, type 2: Plan Case discussed with . Will continue to follow. Admission and Anticipated Discharge Date Admission Date: July 25, 2024 Subjective Uneventful night. No complaints. Denies chest pain, shortness of breath, palpitations, or lightheadedness. Telemetry showed atrial fibrillation with ventricular rate generally in the 80 bpm range. Physical Exam Physical Exam: Appears comfortable. Afebrile. Normotensive. Pulse 90 bpm and irregular Respirations 18 unlabored. Skin: no ecchymoses or generalized lesions. HEENT: unremarkable. Neck: JVP with increased respiratory variation, meniscus only minimally above the clavicle, transmitted murmur to the carotids. Lungs: Mild expiratory wheezing. No stridor or accessory muscle use. No abdominal paradox. Cardiac: irregular rhythm, inaudible aortic closure sound, 3/6 systolic ejection murmur right upper sternal border rating to the carotids. Abdomen: benign. Extremities: no edema, pulses intact. Neurologic: Answers simple questions appropriately, grossly nonfocal. Results & Data Vital Signs (Past 12 Hours) Vital Signs Temp Pulse Resp BP BP Pulse Ox O2 Del Method 07/30/24 11:12 97.7 F 89 18 100/62 92 Room Air 07/30/24 08:00 Room Air 07/30/24 07:06 97.3 F L 87 17 118/72 96 Room Air 07/30/24 02:31 97.9 F 60 18 120/60 97 Room Air Laboratory Results WBC 11.23, hemoglobin 7.9, platelet count 259,000. Sodium 135, potassium 3.7, BUN 14, creatinine 1.04 PG Care Time/CCT Total # of Minutes Spent Total Time Spent with Patient: Total time spent is greater than 50% in coordination of care (as documented) at patient's floor/unit and/or counseling patient: Coding Level of Care Code 20846 SUB INP/OBS CARE 3/50MIN Diagnoses Paroxysmal A-fib I48.0 Severe aortic stenosis I35.0 Anemia D64.9 GI bleed K92.2 Asthma J45.909 Mental disability F79 Type 2 diabetes mellitus with both eyes affected by mild nonproliferative retinopathy and macular edema, without long-term current use of insulin E11.3213 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 residential insulin use: without termite control service representative use 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 complication status: with ophthalmic complications 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 complication detail: with diabetic retinopathy Diabetic retinopathy severity: with mild nonproliferative retinopathy 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 macular edema: with macular edema Laterality: bilateral (7) 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, type 2 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 termite control service representative insulin use: without residential use 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 complication status: with ophthalmic complications 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 complication detail: with diabetic retinopathy Diabetic retinopathy severity: with mild nonproliferative retinopathy 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 macular edema: with macular edema Laterality: bilateral Qualified Code(s): E11.3213 - Type 2 diabetes mellitus with mild nonproliferative diabetic retinopathy with macular edema, bilateral
--- NOTE | 2024-07-30 14:32 | Communication Note ---
Date of Service: July 30, 2024 Contacted outpatient GI office to arrange for outpatient follow-up for this patient. H/H 7.9/25.7 today. No overt GI bleeding.
--- NOTE | 2024-07-30 22:46 | Hospitalist Progress Note ---
Date of Service July 30, 2024 Assessment & Plan (1) Anemia: (2) Moderate persistent asthma, uncomplicated: (3) 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, type 2: (4) Afib: (5) Mixed hearing loss: (6) Mental disability: Plan 83 F presented with weakness and found to have profound anemia suspected to be acute blood loss and iron deficiency, new onset afib with controlled rate and severe on outpt echo, chronic issues with diabetes, HTN, hearing loss and mental disablitty Anemia, concern for GI blood loss, Hemoccult +, GI evaluation, transfusion support, on protonix will change to bid appropriate rise in hgb after transfusion of 2 units, severe iron deficiency, severe places her at risk for angiodysplasia and also shear forces from can promote thrombosis and cause relative depletion of VWF and create bleeding risk plan cancelled for EGD and colonoscopy however due to tachycardia/ wheezing. GI states risks outweigh benefits given hemoglobin is now stable ordered iron supplements anticipate discharge in am Afib, rate controlled, tsh normal, augment low potassium, care not to drop pressure with rate controlling agents as will reduce coronary perfusion pressure and could precipitate angina, started low dose metoprolol 07/27 increased metoprolol to 25 mg PO TID on 2/3 d/w cardiology diabetes, now with clear liquid only status, follow bsg, Will hold metformin Start insulin sliding scale However it seems blood glucose has been under good control, A1c was 6 Asthma stable continue home inhalers added LAMA/ improved with LAMA day prior, updated Alexandrea, also cardiology called her to discuss Full code DVT prophylaxis SCDs Admission and Anticipated Discharge Date Admission Date: July 25, 2024 Subjective 83 yo female reports no new symptoms. Physical Exam Physical Exam: pt lying in bed in NAD. cardiac is RRR lungs are clear abd is soft and non tender Results & Data Results & Data Vital Signs (Past 12 Hours) Vital Signs Temp Pulse Pulse Resp BP Pulse Ox O2 Del Method 07/30/24 19:30 36.5 C 86 18 100/63 95 Room Air 07/30/24 14:55 36.7 C 88 18 93/61 L 96 Room Air 07/30/24 14:52 90 07/30/24 13:29 75 100/58 L 07/30/24 11:12 36.5 C 89 18 100/62 92 Room Air PG Care Time/CCT Total # of Minutes Spent Total Time Spent with Patient: Total time spent is greater than 50% in coordination of care (as documented) at patient's floor/unit and/or counseling patient: Coding Level of Care Code 00647 SUB INP/OBS CARE 235MIN Diagnoses Anemia D64.9 Moderate persistent asthma, uncomplicated J45.40 Type 2 diabetes mellitus with both eyes affected by mild nonproliferative retinopathy and macular edema, without long-term current use of insulin E11.3213 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 regional intermodal truck driver insulin use: without regional intermodal truck driver use 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 complication status: with ophthalmic complications 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 complication detail: with diabetic retinopathy Diabetic retinopathy severity: with mild nonproliferative retinopathy 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 macular edema: with macular edema Laterality: bilateral Afib 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: bilateral Mental disability F79 (3) 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, type 2 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 regional intermodal truck driver insulin use: without regional intermodal truck driver use 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 complication status: with ophthalmic complications 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 complication detail: with diabetic retinopathy Diabetic retinopathy severity: with mild nonproliferative retinopathy 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 macular edema: with macular edema Laterality: bilateral Qualified Code(s): E11.3213 - Type 2 diabetes mellitus with mild nonproliferative diabetic retinopathy with macular edema, bilateral (5) Mixed hearing loss Laterality: bilateral Qualified Code(s): H90.6 - Mixed conductive and sensorineural hearing loss, bilateral
[2024-07-31 07:02] LABS: Hematocrit (blood only) 26.9 % (37.0-47.0); Hemoglobin 8.2 g/dl (12.0-16.0); Mean Corpuscular Hemoglobin 24.4 pg (25.0-34.0); Mean Corpuscular Hgb Conc 30.5 g/dL (32.0-36.0); Mean Corpuscular Volume 80.1 fL (80.0-100.0); Mean Platelet Volume 10.2 fL (9.4-12.4); Platelet Count 273 K/uL (130-400); RDW Coefficient of Variation 18.7 % (11.5-14.5); RDW Standard Deviation 51.9 fL (36.4-46.3); Red Blood Count 3.36 M/uL (4.20-5.40); White Blood Count 10.74 K/ul (4.8-10.8)
[2024-07-31 07:21] LABS: C Reactive Protein 4.04 mg/dl (0-0.5); Calcium 8.2 mg/dl (8.6-10.3); Creatinine Clr Calc Pharmacy 37.2 ml/min; Potassium 3.8 mmol/L (3.5-5.1)
--- NOTE | 2024-07-31 10:30 | Cardiology Progress Note ---
Date of Service July 31, 2024 Assessment & Plan (1) Paroxysmal A-fib: Plan: Persistent atrial fibrillation with good rate control on low-dose metoprolol. Could consolidate to metoprolol succinate 50 mg daily. No role for anticoagulation given GI bleeding. (2) Severe aortic stenosis: Plan: Spoke with her caregiver Alexandrea. Patient has a sister that lives in the [place] area, therefore we will arrange through [facility] for follow-up and evaluation of potential transcatheter aortic valve replacement (TAVR). I will initiate this process and keep her caregiver Alexandrea updated. 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 Conservative management with iron supplementation planned.. (4) GI bleed: Plan: Hemoglobin low but stable. (5) Asthma: Plan: Bronchospasm markedly improved but some bronchospasm persists. No current evidence for volume overload and no role for diuretics. (6) Mental disability: Plan: Decisions via caregiver. (7) 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, type 2: Admission and Anticipated Discharge Date Admission Date: July 25, 2024 Subjective Uneventful night. No complaints. Denies chest pain, shortness of breath, palpitations, or lightheadedness. Telemetry showed atrial fibrillation with ventricular rate 80-90 bpm. Physical Exam Physical Exam: Appears comfortable. Afebrile. Normotensive. Pulse 96 bpm and irregular Respirations 18 unlabored. Skin: no ecchymoses or generalized lesions. HEENT: unremarkable. Neck: JVP with increased respiratory variation, meniscus only minimally above the clavicle, transmitted murmur to the carotids. Lungs: Mild expiratory wheezing. No stridor or accessory muscle use. No abdominal paradox. Cardiac: irregular rhythm, inaudible aortic closure sound, 3/6 systolic ejection murmur right upper sternal border rating to the carotids. Abdomen: benign. Extremities: no edema, pulses intact. Neurologic: Answers simple questions appropriately, grossly nonfocal. Results & Data Laboratory Results Normal electrolytes, BUN 12, creatinine 1.09. PG Care Time/CCT Total # of Minutes Spent Total Time Spent with Patient: Total time spent is greater than 50% in coordination of care (as documented) at patient's floor/unit and/or counseling patient: Coding Level of Care Code 07990 SUB INP/OBS CARE 2/35MIN Diagnoses Paroxysmal A-fib I48.0 Severe aortic stenosis I35.0 Anemia D64.9 GI bleed K92.2 Asthma J45.909 Mental disability F79 Type 2 diabetes mellitus with both eyes affected by mild nonproliferative retinopathy and macular edema, without long-term current use of insulin E11.3212 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 technician terminal and repeater insulin use: without longterm use 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 complication status: with ophthalmic complications 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 complication detail: with diabetic retinopathy Diabetic retinopathy severity: with mild nonproliferative retinopathy 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 macular edema: with macular edema Laterality: bilateral (7) 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, type 2 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 technician terminal and repeater insulin use: without longterm use 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 complication status: with ophthalmic complications 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 complication detail: with diabetic retinopathy Diabetic retinopathy severity: with mild nonproliferative retinopathy 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 macular edema: with macular edema Laterality: bilateral Qualified Code(s): E11.3 - Type 2 diabetes mellitus with mild nonproliferative diabetic retinopathy with macular edema, bilateral
[2024-07-31 11:41] VITALS: BP 120/75; RESP 17; TEMP 97.7; O2SAT 97
[2024-07-31 12:57] VITALS: PULSE 97
== END 2024-07-31 13:40 | disposition home or self-care (01) | DRG 812 ==
LOC: ED 12:23 → EDINP 14:40 → SUATTDRO 14:40 → 2S 17:17